=== PATIENT | female | born 1935 | race Caucasian/White ===

== ENCOUNTER 2017-08-21 19:23 | Observation (INO) | payer MEDICARE, OTHER ==
[~2017-08-21] VITALS: Ht 144.8 cm; Wt 87.1 kg
[~2017-08-21 19:23] MED LIST: ALBU90OI INH; ALBU90OI6 INH; AMLO5 PO; AMOCLA875 PO; ATOR10 PO; Acid Controller20 MG; Antivert25 MG PO; BENA20 PO; CEPH500 PO; CHOL10002; Colace100 MG PO; EFFIENT10 MG PO; ELIQUIS2.5 MG; ELIQUIS2.5 MG PO; ENOX120I SQ; FAMO20 PO; FERR325 PO; FURO20 PO; FURO40 PO; HYDACE10B PO; HYDACE5 PO; Humalog100 UNIT/3 SC; INSLI100I SC; INSULANI SC; INSULANPEN; INSULANPEN SC; INSULIN HUMALOG; LEVFLO500 PO; LOSA25 PO; LOSA50 PO; METO25 PO; METO25ER PO; METPRE4DP PO; MINITRAN TOP; Milk Of Ma800 MG/5 M PO; NITR.4SL; OMEP20ER PO; PANT20 PO; POTA10T PO; PRED20 PO; RANO500T PO; SPIR25 PO; VALD20 PO; Vitamin D2000 UNIT PO; WARF5 PO; XARELTO20 MG PO; [UNRECOGNIZED DRUG - OTHER]; [UNRECOGNIZED DRUG - REMARK]; [UNRECOGNIZED DRUG - REMARK]
[2017-08-21 20:05] LABS: BASOPHILS ABSOLUTE AUTO 0.07 K/mm3 (0.00-0.23); BASOPHILS PERCENT AUTO 1 % (0-2); EOSINOPHILS ABSOLUTE AUTO 0.29 K/mm3 (0.00-0.68); EOSINOPHILS PERCENT AUTO 3 % (0-6); Hematocrit 36.2 % (33.0-51.0); IMMATURE GRAN ABSOLUTE AUTO 0.08 K/mm3 (0.00-0.10); IMMATURE GRAN PERCENT AUTO 1 % (0-1); LYMPHOCYTES PERCENT AUTO 23 % (21-46); MONOCYTES ABSOLUTE AUTO 1.09 K/mm3 (0.16-1.47); MONOCYTES PERCENT AUTO 9 % (4-13); Mean Corpuscular HGB 32.5 pg (26.0-34.0); Mean Corpuscular HGB Conc 33.1 g/dL (31.5-36.5); Mean Corpuscular Volume 98 fL (80-100); Mean Platelet Volume 10.4 fL (9.1-12.4); NEUTROPHILS ABSOLUTE AUTO 7.43 K/mm3 (1.96-9.15); NEUTROPHILS PERCENT AUTO 64 % (41-73); Platelet Count 216 K/mm3 (150-400); RDW Coefficient Variation 13.4 % (11.7-14.2); RDW Standard Deviation 48.6 fL (35.1-46.3); Red Blood Cell Count 3.69 M/mm3 (3.80-5.20); White Blood Cell Count 11.56 K/mm3 (4.00-11.30)
[2017-08-21 20:23] LABS: Alanine Aminotransfer (ALT/SGP 23 U/L (12-78); Albumin, Blood 3.4 g/dL (3.4-5.0); Albumin/Globulin Ratio 0.8 (0.8-1.8); Alk Phos 59 U/L (50-136); Anion Gap 11 mmol/L (6-16); Aspartate Aminotrans (AST/SGOT 22 U/L (12-37); Bilirubin, Total 0.4 mg/dL (0.1-1.0); Blood Urea Nitrogen 51 mg/dL (8-24); Bun/Creatinine Ratio 33.3 (12.0-20.0); CO2, Blood 27 mmol/L (21-32); Calcium, Blood 8.9 mg/dL (8.5-10.1); Chloride, Blood 100 mmol/L (98-108); Creatinine, Blood 1.53 mg/dL (0.40-1.00); Glomerular Filtration Rate 35 (60-); Glucose, Blood 119 mg/dL (70-99); Sodium, Blood 138 mmol/L (136-145); Total Protein, Blood 7.4 g/dL (6.4-8.2); Troponin I <0.015 ng/mL (0.000-0.040)
[2017-08-21 21:32] LABS: Influenza A Negative (NEGATIVE); Influenza B Negative (NEGATIVE)
[2017-08-21 22:54] LABS: Source, Urine Clean Catch
[2017-08-21 22:56] LABS: Bilirubin, Urine Neg (Neg); Blood, Urine Neg (Neg); Glucose Qualitative, Urine Neg (Neg); Ketones, Urine Neg (Neg); Leukocyte Esterase, Urine Neg (Neg); Nitrite, Urine Neg (Neg); Protein, Urine Neg (Neg); Urobilinogen, Urine NORM (Normal)
[2017-08-21 23:20] LABS: Appearance, Urine Clear (Clear); Color, Urine Pale Yellow (P-Yellow)
[2017-08-22 07:49] LABS: International Normalized Ratio 1.05; Prothrombin Time Results 10.9 Sec (9.7-11.5)
[2017-08-22 08:00] LABS: CHOL/HDL RATIO 1.5; Cholesterol 98 mg/dL (50-200); HDL Cholesterol 65 mg/dL (>39); LDL/HDL RATIO 0.4; Low Density Lipoprotein Chol 25 mg/dL (0-110); Triglycerides 41 mg/dL (30-160); Very Low Density Lipoprot Chol 8 mg/dL (6-32)
== END 2017-08-22 15:26 | disposition home or self-care (01) ==
LOC: ER 19:23 → MEDS 19:24 → ER 22:21 → MEDS 22:30 → ENPENDDIS 08-22 13:45 → MEDS 08-22 15:26
PROVIDERS: Emergency Medicine; Family Medicine
DX: G45.9 Transient cerebral ischemic attack, unspecified (principal); I16.0 Hypertensive urgency; E11.319 Type 2 diabetes mellitus with unspecified diabetic retinopathy without macular edema; E11.22 Type 2 diabetes mellitus with diabetic chronic kidney disease; I13.0 Hypertensive heart and chronic kidney disease with heart failure and stage 1 through stage 4 chronic kidney disease, or unspecified chronic kidney disease; N18.3 Chronic kidney disease, stage 3 (moderate); I50.30 Unspecified diastolic (congestive) heart failure; I25.10 Atherosclerotic heart disease of native coronary artery without angina pectoris; G47.33 Obstructive sleep apnea (adult) (pediatric); M19.90 Unspecified osteoarthritis, unspecified site; J45.909 Unspecified asthma, uncomplicated; I25.2 Old myocardial infarction; Z95.5 Presence of coronary angioplasty implant and graft; Z95.1 Presence of aortocoronary bypass graft; Z86.718 Personal history of other venous thrombosis and embolism; Z85.038 Personal history of other malignant neoplasm of large intestine; Z90.710 Acquired absence of both cervix and uterus; Z90.49 Acquired absence of other specified parts of digestive tract; Z79.52 Long term (current) use of systemic steroids; Z79.4 Long term (current) use of insulin; Z79.899 Other long term (current) drug therapy
CPT/HCPCS: 36415; 70450; 71046; 80053; 80061; 81003; 82947; 83036; 84484; 85025; 85610; 85730; 87804; 93005; 93010; 94660; 94762; 96361; 96374; 99285; C9113; G0378; J1815; J2405; J7030

== ENCOUNTER → 2017-10-27 | Outpatient (CLI) | payer MEDICARE, OTHER | END | disposition home or self-care (01) | LOC: PLD 07:42 → LAB SHORT 07:42 | DX: D48.5 Neoplasm of uncertain behavior of skin (principal) | CPT/HCPCS: 88305 ==

== ENCOUNTER → 2017-12-16 | Outpatient (CLI) | payer MEDICARE, OTHER ==
[2017-12-16 14:27] LABS: Source, Urine Clean Catch
[2017-12-16 15:05] LABS: Bilirubin, Urine Neg (Neg); Blood, Urine Neg (Neg); Glucose Qualitative, Urine Neg (Neg); Ketones, Urine Neg (Neg); Leukocyte Esterase, Urine 1+ (Neg); Nitrite, Urine Neg (Neg); Protein, Urine Neg (Neg); Specific Gravity, Urine 1.005 (1.003-1.022); Urobilinogen, Urine NORM (Normal)
[2017-12-16 15:23] LABS: Appearance, Urine Clear (Clear); Color, Urine Yellow (P-Yellow)
[2017-12-16 15:25] LABS: Bacteria Many /hpf; Red Blood Cells, Urine Not Seen /hpf (0-2); Squamous Epithelial Cells Few /hpf (Few)
== END | disposition home or self-care (01) ==
LOC: LAB 13:00 → LAB SHORT 13:00
PROVIDERS: Internal Medicine
DX: N39.0 Urinary tract infection, site not specified (principal)
CPT/HCPCS: 81001; 87077; 87086; 87186

== ENCOUNTER → 2018-04-13 | Outpatient (CLI) | payer MEDICARE, OTHER ==
[2018-04-13 12:03] LABS: Source, Urine Clean Catch
[2018-04-13 12:49] LABS: Bilirubin, Urine Neg (Neg); Blood, Urine Neg (Neg); Glucose Qualitative, Urine Neg (Neg); Ketones, Urine Neg (Neg); Leukocyte Esterase, Urine 2+ (Neg); Nitrite, Urine Neg (Neg); Protein, Urine Neg (Neg); Specific Gravity, Urine 1.005 (1.003-1.022); Urobilinogen, Urine NORM (Normal)
[2018-04-13 13:08] LABS: Appearance, Urine Hazy (Clear); Color, Urine Yellow (P-Yellow)
[2018-04-13 13:09] LABS: Squamous Epithelial Cells Mod /hpf (Few)
[2018-04-13 13:10] LABS: Bacteria Mod /hpf; Red Blood Cells, Urine Not Seen /hpf (0-2)
== END | disposition home or self-care (01) ==
LOC: EDSTATUS 08:51 → LAB 12:01 → LAB SHORT 12:01
PROVIDERS: Internal Medicine
DX: N39.0 Urinary tract infection, site not specified (principal)
CPT/HCPCS: 81001

== ENCOUNTER 2019-03-01 14:01 | Inpatient (IN) | payer MEDICARE, OTHER ==
[~2019-03-01] VITALS: Ht 124.5 cm; Wt 83.9 kg
[~2019-03-01 14:01] MED LIST changes: -CHOL10002; -ELIQUIS2.5 MG PO; -Humalog100 UNIT/3 SC; -LOSA25 PO; -METO25 PO; -Milk Of Ma800 MG/5 M PO; -NITR.4SL; -PANT20 PO; -RANO500T PO; -SPIR25 PO
[2019-03-01 14:50] LABS: BASOPHILS ABSOLUTE AUTO 0.05 K/mm3 (0.00-0.23); BASOPHILS PERCENT AUTO 0 % (0-2); EOSINOPHILS ABSOLUTE AUTO 0.01 K/mm3 (0.00-0.68); EOSINOPHILS PERCENT AUTO 0 % (0-6); Hematocrit 34.2 % (33.0-51.0); Hemoglobin 11.5 g/dL (11.5-16.0); IMMATURE GRAN ABSOLUTE AUTO 0.16 K/mm3 (0.00-0.10); IMMATURE GRAN PERCENT AUTO 1 % (0-1); LYMPHOCYTES ABSOLUTE AUTO 1.46 K/mm3 (0.84-5.20); LYMPHOCYTES PERCENT AUTO 7 % (21-46); MONOCYTES ABSOLUTE AUTO 2.41 K/mm3 (0.16-1.47); MONOCYTES PERCENT AUTO 12 % (4-13); Mean Corpuscular HGB 31.8 pg (26.0-34.0); Mean Corpuscular HGB Conc 33.6 g/dL (31.5-36.5); Mean Corpuscular Volume 95 fL (80-100); Mean Platelet Volume 10.4 fL (9.1-12.4); NEUTROPHILS ABSOLUTE AUTO 16.89 K/mm3 (1.96-9.15); NEUTROPHILS PERCENT AUTO 81 % (41-73); Platelet Count 202 K/mm3 (150-400); RDW Coefficient Variation 13.4 % (11.7-14.2); RDW Standard Deviation 46.6 fL (35.1-46.3); Red Blood Cell Count 3.62 M/mm3 (3.80-5.20); White Blood Cell Count 20.98 K/mm3 (4.00-11.30)
[2019-03-01 15:07] LABS: Albumin, Blood 2.9 g/dL (3.4-5.0); Albumin/Globulin Ratio 0.6 (0.8-1.8); Bilirubin, Total 0.6 mg/dL (0.1-1.0); Bun/Creatinine Ratio 40.1 (12.0-20.0); Calcium, Blood 8.8 mg/dL (8.5-10.1); Creatinine, Blood 1.62 mg/dL (0.40-1.00); Globulin, Blood 4.6 g/dL (2.2-4.0); Potassium, Blood 3.9 mmol/L (3.5-5.5); Total Protein, Blood 7.5 g/dL (6.4-8.2)
[2019-03-01] MEDS ORDERED: ATOR10 PO (16:37)
[2019-03-01] MEDS ORDERED: METO25 PO (16:38)
[2019-03-01] MEDS ORDERED: LOSA25 PO (16:38)
[2019-03-01] MEDS ORDERED: SPIR25 PO (16:38)
[2019-03-01] MEDS ORDERED: RANO500T PO (16:39)
[2019-03-01] MEDS ORDERED: ELIQUIS2.5 MG PO (16:39)
[2019-03-01] MEDS ORDERED: CHOL10002 PO (16:39)
[2019-03-01] MEDS ORDERED: TORS10 PO (16:40)
[2019-03-01] MEDS ORDERED: CLOP75 PO (16:40)
[2019-03-01] MEDS ORDERED: PANT20 PO (16:41)
[2019-03-01] MEDS ORDERED: Nitro-Dur1 EACH TD (16:42)
[2019-03-01] MEDS ORDERED: INSULANPEN SC (16:45)
[2019-03-01] MEDS ORDERED: Humalog100 UNIT/3 SC (16:46)
[2019-03-01] MEDS ORDERED: Milk Of Ma400 MG/5 M PO (16:47)
[2019-03-01] MEDS ORDERED: Ventolin/Prove6.7 GM INH (16:48)
[2019-03-01] MEDS ORDERED: BISA10S PR (16:48)
[2019-03-01] MEDS ORDERED: Artificial Tear15 M4 BOTHEYES (16:49)
[2019-03-01] MEDS ORDERED: Eq Liquid Anta769 ML PO (16:50)
[2019-03-01] MEDS ORDERED: NITR.4SL SL (16:51)
[2019-03-01] MEDS ORDERED: BISM87SU PO (16:52)
[2019-03-02 05:17] LABS: BASOPHILS ABSOLUTE AUTO 0.05 K/mm3 (0.00-0.23); BASOPHILS PERCENT AUTO 0 % (0-2); EOSINOPHILS PERCENT AUTO 0 % (0-6); Hematocrit 36.5 % (33.0-51.0); Hemoglobin 12.1 g/dL (11.5-16.0); IMMATURE GRAN ABSOLUTE AUTO 0.29 K/mm3 (0.00-0.10); IMMATURE GRAN PERCENT AUTO 1 % (0-1); LYMPHOCYTES ABSOLUTE AUTO 1.38 K/mm3 (0.84-5.20); LYMPHOCYTES PERCENT AUTO 6 % (21-46); MONOCYTES ABSOLUTE AUTO 0.76 K/mm3 (0.16-1.47); MONOCYTES PERCENT AUTO 4 % (4-13); Mean Corpuscular HGB 32.1 pg (26.0-34.0); Mean Corpuscular HGB Conc 33.2 g/dL (31.5-36.5); Mean Corpuscular Volume 97 fL (80-100); Mean Platelet Volume 10.6 fL (9.1-12.4); NEUTROPHILS ABSOLUTE AUTO 19.01 K/mm3 (1.96-9.15); NEUTROPHILS PERCENT AUTO 89 % (41-73); Platelet Count 198 K/mm3 (150-400); RDW Coefficient Variation 13.5 % (11.7-14.2); RDW Standard Deviation 48.6 fL (35.1-46.3); Red Blood Cell Count 3.77 M/mm3 (3.80-5.20); White Blood Cell Count 21.49 K/mm3 (4.00-11.30)
[2019-03-02 05:45] LABS: Alanine Aminotransfer (ALT/SGP 13 U/L (12-78); Albumin, Blood 2.8 g/dL (3.4-5.0); Albumin/Globulin Ratio 0.6 (0.8-1.8); Alk Phos 63 U/L (50-136); Anion Gap 11 mmol/L (6-16); Aspartate Aminotrans (AST/SGOT 22 U/L (12-37); Bilirubin, Total 0.5 mg/dL (0.1-1.0); Blood Urea Nitrogen 72 mg/dL (8-24); Bun/Creatinine Ratio 40.7 (12.0-20.0); CO2, Blood 23 mmol/L (21-32); Calcium, Blood 9.1 mg/dL (8.5-10.1); Chloride, Blood 101 mmol/L (98-108); Creatinine, Blood 1.77 mg/dL (0.40-1.00); Globulin, Blood 4.6 g/dL (2.2-4.0); Glomerular Filtration Rate 29 (60-); Glucose, Blood 225 mg/dL (70-99); Potassium, Blood 4.2 mmol/L (3.5-5.5); Sodium, Blood 135 mmol/L (136-145); Total Protein, Blood 7.4 g/dL (6.4-8.2)
[2019-03-02 05:46] LABS: C-REACTIVE PROTEIN, EXT RANGE >19.000 mg/dL (0.000-0.300)
--- NOTE | 2019-03-02 05:49 | NUR ---
SHIFT SUMMARY 83/F ADMITTED FOR CAP COMES FROM [facility] C/O SOB AND PERSISTENT COUGH. PT IS INDEPENDENT IN WITH STEADY GAIT. LS DIM T/O. CONT PULSE OX IN PLACE, O2 SATS HAVE BEEN >93%. PT IS ON 2L VIA NC DURING DAY, CPAP @ NIGHT. BASELINE IS CPAP @ NIGHT, RA DURING DAY. ROCEPHIN AND AZITHROMYCIN ORDERED DAILY. CBG 231 LAST NIGHT, ADMINISTERED HUMALOG AND LANTUS PER ORDERS. 2+ EDEMA TO BLE, NOT BASELINE. TELE IN PLACE, NSR c BBB @ 70's BPM PER PRODUCTION PLANNER. PT RESTING IN BED AT THIS TIME, CALL LT IN REACH. WILL CONT TO MONITOR AND PROVIDE CARE UNTIL PRESUMED BY ONCOMING RN.
[2019-03-02] MEDS ORDERED: Florastor250 MG PO (12:53)
[2019-03-02] MEDS ORDERED: AZIT250 PO (12:55)
[2019-03-02] MEDS ORDERED: CEFP200 PO (12:56)
[2019-03-02] MEDS ORDERED: Prednisone10 MG PO (12:59)
--- NOTE | 2019-03-02 14:29 | NUR ---
435 BLOOD SUGAR-LATE ENTRY PT HAD BLOOD SUGAR OF [address] DOS SANTOS CALLED & INFORMED. NO NEW ORDERS GIVEN. 32 UNITS GIVEN PER ORIGINAL ORDER. DR. PISANO STATED HE WOULD REVIEW CHART. WILL CONINTUE TO MONITOR.
--- NOTE | 2019-03-02 14:35 | NUR ---
DR. DOS SANTOS AWARE OF BLOOD SUGAR OF 273.
--- NOTE | 2019-03-02 15:07 | NUR ---
PT DISCHARGED. PT DISCHARGED AT 1500. PT IN STABLE CONDITION WITH VSS. AWARE OF ELEVATED BLOOD SUGAR. PT REQUIRING 2L O2 WITH EXERTION. NOLAN EDUCATED PT ON PORTABLE O2 TANK. PT EDUCATED ON DC INSTRUCTIONS. DENIED FURTHER NEED FOR INSTRUCTION. PT WHEELED OUT BY AIDE & PICKED UP BY FAMILY.
== END 2019-03-02 15:00 | disposition home or self-care (01) | DRG 194 ==
LOC: ER 14:01 → MEDS 16:40
PROVIDERS: Emergency Medicine; ADMIT Hospitalist
DX: J18.1 Lobar pneumonia, unspecified organism (principal); I50.32 Chronic diastolic (congestive) heart failure; N18.4 Chronic kidney disease, stage 4 (severe); I13.0 Hypertensive heart and chronic kidney disease with heart failure and stage 1 through stage 4 chronic kidney disease, or unspecified chronic kidney disease; I25.10 Atherosclerotic heart disease of native coronary artery without angina pectoris; G47.33 Obstructive sleep apnea (adult) (pediatric); E11.22 Type 2 diabetes mellitus with diabetic chronic kidney disease; E78.5 Hyperlipidemia, unspecified; E11.319 Type 2 diabetes mellitus with unspecified diabetic retinopathy without macular edema; K21.9 Gastro-esophageal reflux disease without esophagitis; M81.0 Age-related osteoporosis without current pathological fracture; Z79.02 Long term (current) use of antithrombotics/antiplatelets; Z79.4 Long term (current) use of insulin; Z79.899 Other long term (current) drug therapy; Z95.1 Presence of aortocoronary bypass graft; Z86.718 Personal history of other venous thrombosis and embolism; Z85.038 Personal history of other malignant neoplasm of large intestine; Z92.21 Personal history of antineoplastic chemotherapy
CPT/HCPCS: 36415; 71046; 80053; 82947; 83605; 83880; 84145; 85025; 86140; 87040; 92610; 94640; 94660; 94667; 94761; 94762; 96365; 97161; 97165; 97530; 99285-25; C9113; J0456; J0696; J2920; J7050

== ENCOUNTER → 2021-02-25 | Outpatient (CLI) | payer MEDICARE, OTHER ==
[~2021-02-25] MED LIST changes: +AZIT250 PO; +Artificial Tear15 M4 BOTHEYES; +BISA10S PR; +BISM87SU PO; +CEFP200 PO; +CHOL10002 PO; +CLOP75 PO; +ELIQUIS2.5 MG PO; +Eq Liquid Anta769 ML PO; +Florastor250 MG PO; +Humalog100 UNIT/3 SC; +LOSA25 PO; +METO25 PO; +Milk Of Ma400 MG/5 M PO; +NITR.4SL SL; +Nitro-Dur1 EACH TD; +PANT20 PO; +Prednisone10 MG PO; +RANO500T PO; +SPIR25 PO; +TORS10 PO; +Ventolin/Prove6.7 GM INH
== END ==
LOC: LAB SHORT 11:00 → LAB 11:00
DX: R30.9 Painful micturition, unspecified (principal)
CPT/HCPCS: 87086

== ENCOUNTER 2021-11-01 00:12 | Day surgery (SDC) | payer MEDICARE, OTHER | END 2021-11-01 10:30 | disposition home or self-care (01) | LOC: ATC 00:12 | DX: R19.7 Diarrhea, unspecified (principal); I13.0 Hypertensive heart and chronic kidney disease with heart failure and stage 1 through stage 4 chronic kidney disease, or unspecified chronic kidney disease; N18.4 Chronic kidney disease, stage 4 (severe); D63.1 Anemia in chronic kidney disease; I50.32 Chronic diastolic (congestive) heart failure; E11.22 Type 2 diabetes mellitus with diabetic chronic kidney disease; I25.10 Atherosclerotic heart disease of native coronary artery without angina pectoris; E11.319 Type 2 diabetes mellitus with unspecified diabetic retinopathy without macular edema; Z79.4 Long term (current) use of insulin | CPT/HCPCS: J2916 ==

== ENCOUNTER 2021-11-04 01:33 | Day surgery (SDC) | payer MEDICARE, OTHER | END 2021-11-04 12:57 | disposition home or self-care (01) | LOC: ATC 01:33 | DX: R19.7 Diarrhea, unspecified (principal); I13.0 Hypertensive heart and chronic kidney disease with heart failure and stage 1 through stage 4 chronic kidney disease, or unspecified chronic kidney disease; N18.4 Chronic kidney disease, stage 4 (severe); I50.32 Chronic diastolic (congestive) heart failure; D63.1 Anemia in chronic kidney disease; I25.10 Atherosclerotic heart disease of native coronary artery without angina pectoris; E11.22 Type 2 diabetes mellitus with diabetic chronic kidney disease; I25.2 Old myocardial infarction; Z96.642 Presence of left artificial hip joint; Z96.651 Presence of right artificial knee joint | CPT/HCPCS: J2916 ==

== ENCOUNTER 2021-11-14 09:38 | Emergency (ER) | payer MEDICARE, OTHER ==
[~2021-11-14] VITALS: Ht 144.8 cm; Wt 82.5 kg
[2021-11-14 10:52] LABS: Influenza B, PCR NEGATIVE (NEGATIVE); Resp Syncytial Virus, PCR NEGATIVE (NEGATIVE); SARS-Cov-2 (COVID-19) PCR, MMC NEGATIVE (NEGATIVE)
[2021-11-14 10:59] LABS: BASOPHILS ABSOLUTE AUTO 0.03 K/mm3 (0.00-0.23); BASOPHILS PERCENT AUTO 0 % (0-2); EOSINOPHILS ABSOLUTE AUTO 0.03 K/mm3 (0.00-0.68); EOSINOPHILS PERCENT AUTO 0 % (0-6); Hematocrit 31.9 % (33.0-51.0); IMMATURE GRAN ABSOLUTE AUTO 0.07 K/mm3 (0.00-0.10); IMMATURE GRAN PERCENT AUTO 1 % (0-1); LYMPHOCYTES PERCENT AUTO 27 % (21-46); MONOCYTES ABSOLUTE AUTO 1.12 K/mm3 (0.16-1.47); MONOCYTES PERCENT AUTO 12 % (4-13); Mean Corpuscular HGB 28.7 pg (26.0-34.0); Mean Corpuscular HGB Conc 31.3 g/dL (31.5-36.5); Mean Corpuscular Volume 92 fL (80-100); Mean Platelet Volume 10.1 fL (9.1-12.4); NEUTROPHILS PERCENT AUTO 60 % (41-73); Platelet Count 260 K/mm3 (150-400); RDW Coefficient Variation 15.2 % (11.7-14.2); RDW Standard Deviation 49.5 fL (35.1-46.3); Red Blood Cell Count 3.48 M/mm3 (3.80-5.20); White Blood Cell Count 9.35 K/mm3 (4.00-11.30)
[2021-11-14 11:09] LABS: Influenza A, PCR POSITIVE (NEGATIVE)
[2021-11-14 11:21] LABS: Albumin/Globulin Ratio 0.7 (0.8-1.8); Bilirubin, Direct 0.1 mg/dL (0.0-0.3); Bilirubin, Indirect 0.3 mg/dL (0.1-0.7); Bilirubin, Total 0.4 mg/dL (0.1-1.0); Bun/Creatinine Ratio 35.4 (12.0-20.0); Calcium, Blood 8.7 mg/dL (8.5-10.1); Creatinine, Blood 1.75 mg/dL (0.40-1.00); Globulin, Blood 4.3 g/dL (2.2-4.0); Total Protein, Blood 7.3 g/dL (6.4-8.2)
[2021-11-14] MEDS ORDERED: PRED20 PO (12:13)
[2021-11-14] MEDS ORDERED: BENZ100A PO (12:13)
== END 2021-11-14 12:42 | disposition home or self-care (01) ==
LOC: ER 09:38
PROVIDERS: Emergency Medicine
DX: J10.1 Influenza due to other identified influenza virus with other respiratory manifestations (principal); J44.1 Chronic obstructive pulmonary disease with (acute) exacerbation; I13.0 Hypertensive heart and chronic kidney disease with heart failure and stage 1 through stage 4 chronic kidney disease, or unspecified chronic kidney disease; E11.22 Type 2 diabetes mellitus with diabetic chronic kidney disease; N18.4 Chronic kidney disease, stage 4 (severe); I50.30 Unspecified diastolic (congestive) heart failure; I25.10 Atherosclerotic heart disease of native coronary artery without angina pectoris; E11.319 Type 2 diabetes mellitus with unspecified diabetic retinopathy without macular edema; I25.2 Old myocardial infarction; Z79.4 Long term (current) use of insulin; Z99.81 Dependence on supplemental oxygen; Z79.899 Other long term (current) drug therapy
CPT/HCPCS: 0241U; 36415; 71045; 80053; 82248; 83605; 84145; 85025; 94644; 94664; J0456; J0696; J1100; J7030; J7060

== ENCOUNTER 2021-11-29 01:03 | Day surgery (SDC) | payer MEDICARE, OTHER ==
[~2021-11-29 01:03] MED LIST changes: +BENZ100A PO
== END 2021-11-29 11:52 | disposition home or self-care (01) ==
LOC: ATC 01:03
DX: R19.7 Diarrhea, unspecified (principal); D63.1 Anemia in chronic kidney disease
CPT/HCPCS: 96365; J2916

== ENCOUNTER → 2021-12-17 | Outpatient (CLI) | payer MEDICARE, OTHER | END | disposition home or self-care (01) | LOC: LAB SHORT 14:52 | DX: C44.319 Basal cell carcinoma of skin of other parts of face (principal) | CPT/HCPCS: 88305 ==

== ENCOUNTER 2022-02-28 09:23 | Inpatient (IN) | payer MEDICARE, OTHER ==
[~2022-02-28] VITALS: Ht 144.8 cm; Wt 83.2 kg
[~2022-02-28 09:23] MED LIST changes: +MECL25 PO; +ONDA4ODT MM
[2022-02-28 10:43] LABS: BASOPHILS ABSOLUTE AUTO 0.04 K/mm3 (0.00-0.23); BASOPHILS PERCENT AUTO 0 % (0-2); EOSINOPHILS ABSOLUTE AUTO 0.15 K/mm3 (0.00-0.68); EOSINOPHILS PERCENT AUTO 2 % (0-6); Hematocrit 33.3 % (33.0-51.0); Hemoglobin 10.8 g/dL (11.5-16.0); IMMATURE GRAN ABSOLUTE AUTO 0.04 K/mm3 (0.00-0.10); IMMATURE GRAN PERCENT AUTO 0 % (0-1); LYMPHOCYTES ABSOLUTE AUTO 2.63 K/mm3 (0.84-5.20); LYMPHOCYTES PERCENT AUTO 29 % (21-46); MONOCYTES ABSOLUTE AUTO 1.17 K/mm3 (0.16-1.47); MONOCYTES PERCENT AUTO 13 % (4-13); Mean Corpuscular HGB 29.3 pg (26.0-34.0); Mean Corpuscular HGB Conc 32.4 g/dL (31.5-36.5); Mean Corpuscular Volume 91 fL (80-100); Mean Platelet Volume 10.6 fL (9.1-12.4); NEUTROPHILS ABSOLUTE AUTO 5.06 K/mm3 (1.96-9.15); NEUTROPHILS PERCENT AUTO 56 % (41-73); Platelet Count 281 K/mm3 (150-400); RDW Coefficient Variation 14.4 % (11.7-14.2); RDW Standard Deviation 47.7 fL (35.1-46.3); Red Blood Cell Count 3.68 M/mm3 (3.80-5.20); White Blood Cell Count 9.09 K/mm3 (4.00-11.30)
[2022-02-28 11:11] LABS: Albumin, Blood 3.1 g/dL (3.4-5.0); Albumin/Globulin Ratio 0.7 (0.8-1.8); Bilirubin, Total 0.5 mg/dL (0.1-1.0); Bun/Creatinine Ratio 40.8 (12.0-20.0); C-REACTIVE PROTEIN, EXT RANGE 0.678 mg/dL (0.000-0.300); Calcium, Blood 9.3 mg/dL (8.5-10.1); Creatinine, Blood 1.57 mg/dL (0.40-1.00); Globulin, Blood 4.3 g/dL (2.2-4.0); Magnesium, Blood 2.3 mg/dL (1.6-2.4); Phosphorus, Blood 3.6 mg/dL (2.5-4.9); Total Protein, Blood 7.4 g/dL (6.4-8.2)
--- NOTE | 2022-02-28 11:24 | NUR ---
LATE ENTRY/DIRECT ADMIT 0950: RECEIVED PT FROM REGISTRATION VIA W/C. PLACED IN ROOM, MADE COMFORTABLE, ORIENTED TO ROOM & UNIT ROUTINE. MADE CALL LIGHT ACCESSIBLE. PIV STARTED IN HER L HAND WITH A 22G X 1 ATTEMPT. PLACED CALL TO MD TO NOTIFY OF PT'S ARRIVAL TO FLOOR & TO OBTAIN ORDERS. PT A&O X 4. VSS ON ADMIT. PT ABLE TO INDEPENDENTLY AMBULATE TO RESTROOM. ENCOURAGED TO CALL FOR HELP IF SHE NEEDS IT. IS PLEASANT & COOPERATIVE WITH ALL CARE. R HAND IS SWOLLEN, RED & WARM TO TOUCH. SHE STATES IT DOES HURT. ORDERED A CT SCAN W/OUT CONTRAST (HAS RENAL DYSFXN). 1115: PT TO CT SCAN VIA W/C.
--- NOTE | 2022-02-28 11:30 | NUR ---
PHYSICAL ASSESSMENT PT'S LUNGS ARE DIMINISHED BILAT BASES OTHERWISE CLEAR, HEART SOUNDS ARE REGULAR THOUGH HAS A QUIET MURMUR, ABD SOUNDS ARE NORMAL. NO SWELLING IN ALL UN-EFFECTED EXTREMITIES. MENTATION IS CLEAR AND SHE ANSWERS ALL QUESTIONS APPROPRIATELY. NO NOTED SKIN ISSUES.
--- NOTE | 2022-02-28 18:03 | NUR ---
SHIFT SUMMARY A&O X 4. VSS. INDEPENDENT IN THE ROOM. WILL BE NPO AFTER MN FOR SURGERY ON R HAND TOMORROW MORNING WITH DR. CARDENAS. IS PLEASANT & COOPERATIVE WITH ALL CARE.
--- NOTE | 2022-02-28 20:49 | NUR ---
NURSE NOTE: LISA KING NOTIFIED PT DOES NOT HAVE CODE STATUS ORDERED. PT IS ALERT AND ORIENTED X4 INFORMED THIS RN THAT SHE DOES NOT WANT ANY RESUSITATION WHAT SO EVER. GAVE TELEPHONE ORDER TO PLACE DNR RESUSITATION ORDER.
[2022-03-01 03:37] LABS: Influenza A, PCR NEGATIVE (NEGATIVE); Influenza B, PCR NEGATIVE (NEGATIVE); Resp Syncytial Virus, PCR NEGATIVE (NEGATIVE)
[2022-03-01 03:41] LABS: SARS-Cov-2 (COVID-19) PCR, MMC POSITIVE (NEGATIVE)
--- NOTE | 2022-03-01 04:27 | NUR ---
SHIFT SUMMARY: A/OX4, ADLIB IN ROOM. NO COMPLAINTS OF PAIN THROUGHOUT THE NIGHT. PT WAS TESTED FOR COVID DUE TO PENDING SURGICAL PROCEDURE- COVID TEST RESULTING IN (+). RISHABH KING NOTIFIED- ENHANCED ISOLATION PRECAUTIONS ORDERED. PT HAS REMAINED NPO AFTER MIDNIGHT. CPAP IN USE WITH 2L O2 WHEN SLEEPING. BED IN LOW POSITION, CALL LAMA AND BELONGINGS IN REACH. PT CONTINUES TO CALL APPROPRIATELY.
[2022-03-01 05:54] LABS: Creatinine, Blood 1.57 mg/dL (0.40-1.00); Vancomycin, Random 15.1 ug/mL
--- NOTE | 2022-03-01 15:16 | NUR ---
03/01/22 1516 Gwen Tompkins PATIENT ON SCHEDULED ANTIBIOTICS
--- NOTE | 2022-03-01 16:51 | NUR ---
SHIFT SUMMARY;PATIENT WENT TO SURGERY TODAY FOR A DEBRIDEMENT OF HER LEFT HAND. DONE BY . RETURNED FROM SURGERY APPROX 1600. HER LEFT HAND IS WRAPPED IN GAUZE AND KEENA WRAP. NO DRAINAGE NOTED FROM SITE. PATIENT SAYS MINIMAL PAIN. REFUSES PAIN MEDICATIONS AT THIS TIME. HER VITAL SIGNS SHOW SYSTOLIC IN THE 140'S AND DYSTOLIC IN THE 40 TO 50 RANGE. WILL CONTINUE TO MONITOR THIS PATIENT
--- NOTE | 2022-03-02 04:15 | NUR ---
SHIFT SUMMARY: A/OX4, ADLIB IN ROOM WITH AMBULATION AND REPOSITIONING. NO COMPLAINTS OF PAIN THROUGHOUT THE NIGHT. RIGHT HAND POST PROCEDURE DRESSING IN PLACE, NO DRAINAGE NOTED, CAPILLARY REFIL <3 SECONDS. 2L O2 NASAL CANNULA APPLIED DUE TO SLIGHT DESATURATION DOWN TO 88% PT REPORTS USING PRN OXYGEN 2L AT HOME. OTHERWISE CPAP WITH 2L O2 USED WHEN SLEEPING. BED IN LOW POSITION, CALL LAMA AND BELONGINGS IN REACH. PT CONTINUES TO CALL APPROPRIATELY.
[2022-03-02 05:04] LABS: BASOPHILS ABSOLUTE AUTO 0.01 K/mm3 (0.00-0.23); BASOPHILS PERCENT AUTO 0 % (0-2); EOSINOPHILS PERCENT AUTO 0 % (0-6); Hematocrit 30.5 % (33.0-51.0); Hemoglobin 9.9 g/dL (11.5-16.0); IMMATURE GRAN ABSOLUTE AUTO 0.03 K/mm3 (0.00-0.10); IMMATURE GRAN PERCENT AUTO 1 % (0-1); LYMPHOCYTES ABSOLUTE AUTO 1.34 K/mm3 (0.84-5.20); LYMPHOCYTES PERCENT AUTO 21 % (21-46); MONOCYTES PERCENT AUTO 5 % (4-13); Mean Corpuscular HGB 29.4 pg (26.0-34.0); Mean Corpuscular HGB Conc 32.5 g/dL (31.5-36.5); Mean Corpuscular Volume 91 fL (80-100); Mean Platelet Volume 10.9 fL (9.1-12.4); NEUTROPHILS ABSOLUTE AUTO 4.77 K/mm3 (1.96-9.15); NEUTROPHILS PERCENT AUTO 74 % (41-73); Platelet Count 233 K/mm3 (150-400); RDW Coefficient Variation 14.2 % (11.7-14.2); RDW Standard Deviation 46.6 fL (35.1-46.3); Red Blood Cell Count 3.37 M/mm3 (3.80-5.20); White Blood Cell Count 6.45 K/mm3 (4.00-11.30)
[2022-03-02 05:54] LABS: Anion Gap 10 mmol/L (6-16); Blood Urea Nitrogen 60 mg/dL (8-24); CO2, Blood 23 mmol/L (21-32); Chloride, Blood 104 mmol/L (98-108); Creatinine, Blood 1.54 mg/dL (0.40-1.00); Glomerular Filtration Rate 33 (60-); Glucose, Blood 232 mg/dL (70-99); Sodium, Blood 137 mmol/L (136-145); Vancomycin, Random 18.4 ug/mL
--- NOTE | 2022-03-02 15:37 | NUR ---
SHIFT SUMMARY; PATIENT HAS PLEASANT AFFECT. SHE IS COOPERATIVE WITH CARE. USES CALL LIGHT APPROPRIATELY AND IS INDEPENDANT IN ROOM. HER VITAL SIGNS ARE STABLE. HER PULSE IS CONSISTENTLY BRADYCARDIC IN THE 50'S. SHE IS NOT SYMPTOMATIC. MEETS WITH PATIENT AND HE WILL HAVE HER STAY AT LEAST ONE OR TWO MORE DAYS TO RECEIVE ANTIBIOTICS IV. PATIENT SAYS SHE HAS MINIMAL PAIN AND IS ONLY MEDICATED X 1 WITH PAIN MEDICINE THIS AM. HER LUNGS ARE CLEAR TO AUSCULTATION HOWEVER ARE DIMINISHED IN THE BASES.
--- NOTE | 2022-03-03 04:30 | NUR ---
SHIFT SUMMARY: A/OX4, ADLIB IN ROOM. NO COMPLAINTS OF PAIN THROUGHOUT THE NIGHT. NO ACUTE CHANGES THROUGHOUT THE NIGHT. PT CONTINUES TO USE CPAP AT NIGHT WITH 2L O2, SATING ABOVE 90%. RIGHT HAND DRESSING REMAINS CLEAN, DRY AND INTACT. CONTINUES TO CALL APPROPRIATELY, BED IN LOW POSITION, CALL LAMA AND BELONGINGS IN REACH.
[2022-03-03 06:02] LABS: BASOPHILS ABSOLUTE AUTO 0.04 K/mm3 (0.00-0.23); BASOPHILS PERCENT AUTO 0 % (0-2); EOSINOPHILS ABSOLUTE AUTO 0.21 K/mm3 (0.00-0.68); EOSINOPHILS PERCENT AUTO 2 % (0-6); Hematocrit 30.4 % (33.0-51.0); Hemoglobin 9.7 g/dL (11.5-16.0); IMMATURE GRAN ABSOLUTE AUTO 0.04 K/mm3 (0.00-0.10); IMMATURE GRAN PERCENT AUTO 0 % (0-1); LYMPHOCYTES ABSOLUTE AUTO 3.07 K/mm3 (0.84-5.20); LYMPHOCYTES PERCENT AUTO 35 % (21-46); MONOCYTES ABSOLUTE AUTO 1.01 K/mm3 (0.16-1.47); MONOCYTES PERCENT AUTO 11 % (4-13); Mean Corpuscular HGB Conc 31.9 g/dL (31.5-36.5); Mean Corpuscular Volume 91 fL (80-100); NEUTROPHILS ABSOLUTE AUTO 4.52 K/mm3 (1.96-9.15); NEUTROPHILS PERCENT AUTO 51 % (41-73); Platelet Count 203 K/mm3 (150-400); RDW Coefficient Variation 14.3 % (11.7-14.2); RDW Standard Deviation 47.5 fL (35.1-46.3); Red Blood Cell Count 3.34 M/mm3 (3.80-5.20); White Blood Cell Count 8.89 K/mm3 (4.00-11.30)
[2022-03-03 06:06] LABS: Anion Gap 8 mmol/L (6-16); Blood Urea Nitrogen 63 mg/dL (8-24); Bun/Creatinine Ratio 37.1 (12.0-20.0); CO2, Blood 26 mmol/L (21-32); Calcium, Blood 8.6 mg/dL (8.5-10.1); Chloride, Blood 104 mmol/L (98-108); Glomerular Filtration Rate 29 (60-); Glucose, Blood 194 mg/dL (70-99); Potassium, Blood 4.5 mmol/L (3.5-5.5); Sodium, Blood 138 mmol/L (136-145); Vancomycin, Random 18.5 ug/mL
[2022-03-03] MEDS ORDERED: ALLO100 PO (14:54)
[2022-03-03] MEDS ORDERED: COLCHICINE0.6 MG PO (14:55)
--- NOTE | 2022-03-03 15:48 | NUR ---
PT IS A&O, PLEASANT AND CO-OP. UP INDEPENDENTLY IN RM AND TO BTHRM. PT WANTING TO GO HOME. DR CARDENAS HERE FOR DRSG CHANGE AND GAVE PT INSTRUCTIONS FOR D/C. PT TO F/U IN 1 WEEK AND DO DAILY DRY DRSG CHANGES. DR KEYES IN TO SEE PT AND DISCUSS PLAN OF CARE. D/C ORDERS LATER PLACED. PT UP TO SHOWER INDEPENDENTLY AND WAITED IN CHAIR AT FOR D/C INSTRUCTIONS. MEDS FAXED TO [facility] PER PT REQUEST. UPDATED REVISED MED REC RESENT FOR ABX. PT VERBALIZED D/C INSTRUCTIONS. CALLED HER FRIEND FOR [facility] HOME. PT ASSISTED OUT VIA W/C WITH ALL BELONGINGS.
== END 2022-03-03 15:21 | disposition home or self-care (01) | DRG 553 ==
LOC: MEDS 09:23 → ENPENDDIS 03-03 14:04 → MEDS 03-03 15:21
PROVIDERS: Orthopaedic Surgery; ADMIT Hospitalist
PROC: 8E0ZXY6 Isolation (ICD-10-PCS; 2022-03-01)
PROC: 0JBJ0ZX Excision of Right Hand Subcutaneous Tissue and Fascia, Open Approach, Diagnostic (ICD-10-PCS; principal; 2022-03-01 13:15)
DX: M10.041 Idiopathic gout, right hand (principal); U07.1 COVID-19; N18.4 Chronic kidney disease, stage 4 (severe); I50.32 Chronic diastolic (congestive) heart failure; E78.5 Hyperlipidemia, unspecified; E11.22 Type 2 diabetes mellitus with diabetic chronic kidney disease; G47.33 Obstructive sleep apnea (adult) (pediatric); E11.319 Type 2 diabetes mellitus with unspecified diabetic retinopathy without macular edema; E04.9 Nontoxic goiter, unspecified; I25.10 Atherosclerotic heart disease of native coronary artery without angina pectoris; I35.1 Nonrheumatic aortic (valve) insufficiency; I48.0 Paroxysmal atrial fibrillation; Z79.01 Long term (current) use of anticoagulants; Z86.718 Personal history of other venous thrombosis and embolism; K21.9 Gastro-esophageal reflux disease without esophagitis; M81.0 Age-related osteoporosis without current pathological fracture; Z95.1 Presence of aortocoronary bypass graft; Z92.21 Personal history of antineoplastic chemotherapy; D64.9 Anemia, unspecified; Z96.642 Presence of left artificial hip joint; E11.51 Type 2 diabetes mellitus with diabetic peripheral angiopathy without gangrene; Z79.899 Other long term (current) drug therapy; Z79.4 Long term (current) use of insulin; Z88.8 Allergy status to other drugs, medicaments and biological substances
CPT/HCPCS: 0241U; 36415; 73200; 80048; 80053; 80202; 82565; 82947; 83735; 84100; 84550; 85025; 85651; 86140; 87070; 87075; 87205; 94660; 94762; A9270; C9113; J0696; J1100; J1650; J1815; J2250; J2370; J2405; J2704; J2795; J3010; J3370; J7040; J7060

== ENCOUNTER → 2022-07-09 | Outpatient (CLI) | payer MEDICARE, OTHER ==
[~2022-07-09] MED LIST changes: +ALLO100 PO; +COLCHICINE0.6 MG PO
[2022-07-09 11:52] LABS: Source, Urine Clean Catch
[2022-07-09 13:53] LABS: Appearance, Urine Cloudy (Clear); Bilirubin, Urine Neg (Neg); Blood, Urine 5+ (Neg); Color, Urine Yellow (P-Yellow); Glucose Qualitative, Urine Neg (Neg); Ketones, Urine Neg (Neg); Leukocyte Esterase, Urine 3+ (Neg); Nitrite, Urine Neg (Neg); Protein, Urine 2+ (Neg); Specific Gravity, Urine 1.015 (1.003-1.022); Urobilinogen, Urine NORM (Normal)
[2022-07-09 14:27] LABS: Bacteria Many /hpf; Red Blood Cells, Urine TNTC /hpf (0-2); Squamous Epithelial Cells Few /hpf (Few); Transitional Epithelial Cells Few /hpf (0-Rare); White Blood Cells, Urine TNTC /hpf (0-5)
== END | disposition home or self-care (01) ==
LOC: LAB SHORT 08:00
PROVIDERS: Hospitalist
DX: N39.0 Urinary tract infection, site not specified (principal)
CPT/HCPCS: 81001; 87077; 87086; 87186

== ENCOUNTER → 2022-07-17 | Outpatient (CLI) | payer MEDICARE, OTHER ==
[2022-07-17 13:22] LABS: Albumin, Blood 3.3 g/dL (3.4-5.0); Anion Gap 8 mmol/L (6-16); BASOPHILS ABSOLUTE AUTO 0.07 K/mm3 (0.00-0.23); BASOPHILS PERCENT AUTO 1 % (0-2); Blood Urea Nitrogen 100 mg/dL (8-24); Bun/Creatinine Ratio 53.8 (12.0-20.0); CO2, Blood 25 mmol/L (21-32); Calcium, Blood 9.4 mg/dL (8.5-10.1); Chloride, Blood 107 mmol/L (98-108); Creatinine, Blood 1.86 mg/dL (0.40-1.00); EOSINOPHILS ABSOLUTE AUTO 0.32 K/mm3 (0.00-0.68); EOSINOPHILS PERCENT AUTO 3 % (0-6); Glomerular Filtration Rate 26 (60-); Glucose, Blood 85 mg/dL (70-99); Hematocrit 36.5 % (33.0-51.0); Hemoglobin 12.3 g/dL (11.5-16.0); IMMATURE GRAN ABSOLUTE AUTO 0.06 K/mm3 (0.00-0.10); IMMATURE GRAN PERCENT AUTO 1 % (0-1); LYMPHOCYTES ABSOLUTE AUTO 3.37 K/mm3 (0.84-5.20); LYMPHOCYTES PERCENT AUTO 28 % (21-46); MONOCYTES ABSOLUTE AUTO 1.31 K/mm3 (0.16-1.47); MONOCYTES PERCENT AUTO 11 % (4-13); Mean Corpuscular HGB 31.7 pg (26.0-34.0); Mean Corpuscular HGB Conc 33.7 g/dL (31.5-36.5); Mean Corpuscular Volume 94 fL (80-100); Mean Platelet Volume 12.1 fL (9.1-12.4); NEUTROPHILS ABSOLUTE AUTO 6.79 K/mm3 (1.96-9.15); NEUTROPHILS PERCENT AUTO 57 % (41-73); Phosphorus, Blood 4.3 mg/dL (2.5-4.9); Platelet Count 227 K/mm3 (150-400); RDW Coefficient Variation 19.3 % (11.7-14.2); RDW Standard Deviation 66.2 fL (35.1-46.3); Red Blood Cell Count 3.88 M/mm3 (3.80-5.20); Sodium, Blood 140 mmol/L (136-145); White Blood Cell Count 11.92 K/mm3 (4.00-11.30)
[2022-07-17 13:23] LABS: Albumin, Blood 3.3 g/dL (3.4-5.0); Albumin/Globulin Ratio 0.8 (0.8-1.8); Bilirubin, Total 0.4 mg/dL (0.1-1.0); Bun/Creatinine Ratio 52.4 (12.0-20.0); Calcium, Blood 9.4 mg/dL (8.5-10.1); Creatinine, Blood 1.87 mg/dL (0.40-1.00); Globulin, Blood 3.9 g/dL (2.2-4.0); Potassium, Blood 3.9 mmol/L (3.5-5.5); Total Protein, Blood 7.2 g/dL (6.4-8.2)
[2022-07-17 13:35] LABS: Percent Saturation 17.2 % (15.0-50.0)
[2022-07-17 14:12] LABS: Creatinine, Urine Random 55.3 mg/dL (27.00-270.00); Protein, Urine Random 10.5 mg/dL (0.0-11.9); Protein/Creat Ratio, Ur Random 0.2
== END ==
LOC: LAB SHORT 10:26 → EDSTATUS 16:13
PROVIDERS: Hospitalist; Internal Medicine Nephrology
DX: I13.0 Hypertensive heart and chronic kidney disease with heart failure and stage 1 through stage 4 chronic kidney disease, or unspecified chronic kidney disease (principal); I50.30 Unspecified diastolic (congestive) heart failure; E11.22 Type 2 diabetes mellitus with diabetic chronic kidney disease; N18.4 Chronic kidney disease, stage 4 (severe); D63.1 Anemia in chronic kidney disease; E55.9 Vitamin D deficiency, unspecified; E11.65 Type 2 diabetes mellitus with hyperglycemia
CPT/HCPCS: 80053; 80069; 82306; 82570; 82728; 83036; 83540; 83550; 83880; 83970; 84100; 84156; 85025

== ENCOUNTER → 2022-09-05 | Outpatient (CLI) | payer MEDICARE, OTHER ==
[~2022-09-05] MED LIST changes: +Isosorbide Mono30 MG; +LOSA25
[2022-09-05 15:50] LABS: BASOPHILS ABSOLUTE AUTO 0.08 K/mm3 (0.00-0.23); BASOPHILS PERCENT AUTO 1 % (0-2); EOSINOPHILS ABSOLUTE AUTO 0.53 K/mm3 (0.00-0.68); EOSINOPHILS PERCENT AUTO 6 % (0-6); Hematocrit 36.1 % (33.0-51.0); IMMATURE GRAN ABSOLUTE AUTO 0.05 K/mm3 (0.00-0.10); IMMATURE GRAN PERCENT AUTO 1 % (0-1); LYMPHOCYTES ABSOLUTE AUTO 3.13 K/mm3 (0.84-5.20); LYMPHOCYTES PERCENT AUTO 35 % (21-46); MONOCYTES ABSOLUTE AUTO 0.98 K/mm3 (0.16-1.47); MONOCYTES PERCENT AUTO 11 % (4-13); Mean Corpuscular HGB 32.9 pg (26.0-34.0); Mean Corpuscular HGB Conc 33.2 g/dL (31.5-36.5); Mean Corpuscular Volume 99 fL (80-100); Mean Platelet Volume 11.7 fL (9.1-12.4); NEUTROPHILS ABSOLUTE AUTO 4.06 K/mm3 (1.96-9.15); NEUTROPHILS PERCENT AUTO 46 % (41-73); Platelet Count 229 K/mm3 (150-400); RDW Coefficient Variation 15.5 % (11.7-14.2); RDW Standard Deviation 56.1 fL (35.1-46.3); Red Blood Cell Count 3.65 M/mm3 (3.80-5.20); White Blood Cell Count 8.83 K/mm3 (4.00-11.30)
[2022-09-05 18:20] LABS: Albumin, Blood 3.4 g/dL (3.4-5.0); Anion Gap 6 mmol/L (6-16); Blood Urea Nitrogen 73 mg/dL (8-24); Bun/Creatinine Ratio 44.8 (12.0-20.0); CO2, Blood 25 mmol/L (21-32); Calcium, Blood 9.4 mg/dL (8.5-10.1); Chloride, Blood 105 mmol/L (98-108); Creatinine, Blood 1.63 mg/dL (0.40-1.00); Glomerular Filtration Rate 31 (60-); Glucose, Blood 139 mg/dL (70-99); Phosphorus, Blood 3.5 mg/dL (2.5-4.9); Potassium, Blood 4.1 mmol/L (3.5-5.5); Sodium, Blood 136 mmol/L (136-145)
== END | disposition home or self-care (01) ==
LOC: LAB SHORT 08:30 → LAB 08:30
PROVIDERS: Internal Medicine Nephrology
DX: N18.9 Chronic kidney disease, unspecified (principal)
CPT/HCPCS: 80069; 85025

== ENCOUNTER → 2022-10-06 | Outpatient (CLI) | payer MEDICARE, OTHER ==
[2022-10-06 16:12] LABS: BASOPHILS ABSOLUTE AUTO 0.08 K/mm3 (0.00-0.23); BASOPHILS PERCENT AUTO 1 % (0-2); EOSINOPHILS ABSOLUTE AUTO 0.25 K/mm3 (0.00-0.68); EOSINOPHILS PERCENT AUTO 3 % (0-6); Hematocrit 34.9 % (33.0-51.0); Hemoglobin 11.5 g/dL (11.5-16.0); IMMATURE GRAN ABSOLUTE AUTO 0.04 K/mm3 (0.00-0.10); IMMATURE GRAN PERCENT AUTO 1 % (0-1); LYMPHOCYTES ABSOLUTE AUTO 3.22 K/mm3 (0.84-5.20); LYMPHOCYTES PERCENT AUTO 36 % (21-46); MONOCYTES ABSOLUTE AUTO 0.89 K/mm3 (0.16-1.47); MONOCYTES PERCENT AUTO 10 % (4-13); Mean Corpuscular HGB 32.1 pg (26.0-34.0); Mean Corpuscular Volume 98 fL (80-100); Mean Platelet Volume 11.9 fL (9.1-12.4); NEUTROPHILS ABSOLUTE AUTO 4.39 K/mm3 (1.96-9.15); NEUTROPHILS PERCENT AUTO 50 % (41-73); Platelet Count 176 K/mm3 (150-400); RDW Coefficient Variation 14.6 % (11.7-14.2); RDW Standard Deviation 52.6 fL (35.1-46.3); Red Blood Cell Count 3.58 M/mm3 (3.80-5.20); White Blood Cell Count 8.87 K/mm3 (4.00-11.30)
[2022-10-06 22:25] LABS: Percent Saturation 23.8 % (15.0-50.0)
== END | disposition home or self-care (01) ==
LOC: LAB SHORT 13:10
PROVIDERS: Internal Medicine Hematology & Oncology
DX: C18.2 Malignant neoplasm of ascending colon (principal)
CPT/HCPCS: 82728; 83540; 83550; 85025; 85651

== ENCOUNTER → 2022-11-06 | Outpatient (CLI) | payer MEDICARE, OTHER ==
[2022-11-06 15:58] LABS: BASOPHILS ABSOLUTE AUTO 0.06 K/mm3 (0.00-0.23); BASOPHILS PERCENT AUTO 1 % (0-2); EOSINOPHILS ABSOLUTE AUTO 0.21 K/mm3 (0.00-0.68); EOSINOPHILS PERCENT AUTO 2 % (0-6); Hematocrit 34.8 % (33.0-51.0); Hemoglobin 11.8 g/dL (11.5-16.0); IMMATURE GRAN ABSOLUTE AUTO 0.03 K/mm3 (0.00-0.10); IMMATURE GRAN PERCENT AUTO 0 % (0-1); LYMPHOCYTES ABSOLUTE AUTO 3.39 K/mm3 (0.84-5.20); LYMPHOCYTES PERCENT AUTO 39 % (21-46); MONOCYTES PERCENT AUTO 10 % (4-13); Mean Corpuscular HGB Conc 33.9 g/dL (31.5-36.5); Mean Corpuscular Volume 94 fL (80-100); Mean Platelet Volume 11.5 fL (9.1-12.4); NEUTROPHILS ABSOLUTE AUTO 4.18 K/mm3 (1.96-9.15); NEUTROPHILS PERCENT AUTO 48 % (41-73); Platelet Count 192 K/mm3 (150-400); RDW Coefficient Variation 14.6 % (11.7-14.2); RDW Standard Deviation 49.9 fL (35.1-46.3); Red Blood Cell Count 3.69 M/mm3 (3.80-5.20); White Blood Cell Count 8.77 K/mm3 (4.00-11.30)
[2022-11-06 16:25] LABS: Magnesium, Blood 2.3 mg/dL (1.6-2.4)
[2022-11-06 16:29] LABS: Albumin, Blood 3.8 g/dL (3.4-5.0); Albumin/Globulin Ratio 1.2 (0.8-1.8); Bilirubin, Total 0.5 mg/dL (0.1-1.0); Bun/Creatinine Ratio 49.7 (12.0-20.0); CHOL/HDL RATIO 2.1; Calcium, Blood 9.4 mg/dL (8.5-10.1); Cholesterol 100 mg/dL (50-200); Creatinine, Blood 1.99 mg/dL (0.40-1.00); Ferritin, Serum 91 ng/mL (8-252); Globulin, Blood 3.1 g/dL (2.2-4.0); HDL Cholesterol 47 mg/dL (>39); Iron Serum 88 ug/dL (50-170); LDL/HDL RATIO 0.9; Low Density Lipoprotein Chol 41 mg/dL (0-110); Phosphorus, Blood 4.3 mg/dL (2.5-4.9); Potassium, Blood 4.3 mmol/L (3.5-5.5); Total Iron Binding Capacity 367 ug/dL (250-450); Total Protein, Blood 6.9 g/dL (6.4-8.2); Triglycerides 61 mg/dL (30-160); Very Low Density Lipoprot Chol 12 mg/dL (6-32)
[2022-11-06 16:34] LABS: Thyroid Stimulating Hormone 0.969 uIU/mL (0.360-4.800)
== END | disposition home or self-care (01) ==
LOC: LAB SHORT 08:15 → EDSTATUS 16:50
PROVIDERS: Hospitalist
DX: E11.65 Type 2 diabetes mellitus with hyperglycemia (principal); E11.22 Type 2 diabetes mellitus with diabetic chronic kidney disease; I13.0 Hypertensive heart and chronic kidney disease with heart failure and stage 1 through stage 4 chronic kidney disease, or unspecified chronic kidney disease; I50.30 Unspecified diastolic (congestive) heart failure; N18.4 Chronic kidney disease, stage 4 (severe); E04.1 Nontoxic single thyroid nodule; E78.2 Mixed hyperlipidemia; D63.1 Anemia in chronic kidney disease
CPT/HCPCS: 80053; 80061; 82306; 82728; 83036; 83540; 83550; 83735; 83880; 83970; 84100; 84443; 85025

== ENCOUNTER → 2023-01-05 | Outpatient (CLI) | payer MEDICARE, OTHER ==
[2023-01-05 18:06] LABS: BASOPHILS ABSOLUTE AUTO 0.07 K/mm3 (0.00-0.23); BASOPHILS PERCENT AUTO 1 % (0-2); EOSINOPHILS ABSOLUTE AUTO 0.35 K/mm3 (0.00-0.68); EOSINOPHILS PERCENT AUTO 3 % (0-6); Hematocrit 38.4 % (33.0-51.0); Hemoglobin 12.7 g/dL (11.5-16.0); IMMATURE GRAN ABSOLUTE AUTO 0.07 K/mm3 (0.00-0.10); IMMATURE GRAN PERCENT AUTO 1 % (0-1); LYMPHOCYTES ABSOLUTE AUTO 3.82 K/mm3 (0.84-5.20); LYMPHOCYTES PERCENT AUTO 33 % (21-46); MONOCYTES ABSOLUTE AUTO 1.22 K/mm3 (0.16-1.47); MONOCYTES PERCENT AUTO 11 % (4-13); Mean Corpuscular HGB 32.1 pg (26.0-34.0); Mean Corpuscular HGB Conc 33.1 g/dL (31.5-36.5); Mean Corpuscular Volume 97 fL (80-100); Mean Platelet Volume 11.9 fL (9.1-12.4); NEUTROPHILS ABSOLUTE AUTO 6.13 K/mm3 (1.96-9.15); NEUTROPHILS PERCENT AUTO 53 % (41-73); Platelet Count 218 K/mm3 (150-400); RDW Coefficient Variation 15.1 % (11.7-14.2); RDW Standard Deviation 54.3 fL (35.1-46.3); Red Blood Cell Count 3.96 M/mm3 (3.80-5.20); White Blood Cell Count 11.66 K/mm3 (4.00-11.30)
[2023-01-05 18:51] LABS: Alanine Aminotransfer (ALT/SGP 38 U/L (12-78); Albumin, Blood 3.6 g/dL (3.4-5.0); Albumin/Globulin Ratio 0.9 (0.8-1.8); Alk Phos 138 U/L (50-136); Anion Gap 7 mmol/L (6-16); Aspartate Aminotrans (AST/SGOT 34 U/L (12-37); Bilirubin, Total 0.6 mg/dL (0.1-1.0); Blood Urea Nitrogen 78 mg/dL (8-24); Bun/Creatinine Ratio 41.1 (12.0-20.0); CO2, Blood 25 mmol/L (21-32); Calcium, Blood 9.9 mg/dL (8.5-10.1); Chloride, Blood 101 mmol/L (98-108); Globulin, Blood 3.9 g/dL (2.2-4.0); Glomerular Filtration Rate 25 (60-); Glucose, Blood 241 mg/dL (70-99); Phosphorus, Blood 3.8 mg/dL (2.5-4.9); Potassium, Blood 3.8 mmol/L (3.5-5.5); Sodium, Blood 133 mmol/L (136-145); Total Protein, Blood 7.5 g/dL (6.4-8.2)
[2023-01-05 19:11] LABS: Creatinine, Urine Random 25.4 mg/dL (27.00-270.00); Microalb/Creat Ratio UR, Rand 44.882 mg/g (0.000-30.000); Microalbumin, Random Urine 11.4 mg/L (0.000-20.000)
== END ==
LOC: LAB 14:15 → LAB SHORT 14:15
PROVIDERS: Hospitalist
DX: E11.65 Type 2 diabetes mellitus with hyperglycemia (principal); E11.22 Type 2 diabetes mellitus with diabetic chronic kidney disease; N18.4 Chronic kidney disease, stage 4 (severe); I13.0 Hypertensive heart and chronic kidney disease with heart failure and stage 1 through stage 4 chronic kidney disease, or unspecified chronic kidney disease; I50.30 Unspecified diastolic (congestive) heart failure
CPT/HCPCS: 80053; 82043; 82570; 83036; 83880; 84100; 85025

== ENCOUNTER → 2023-03-23 | Outpatient (CLI) | payer MEDICARE, OTHER ==
[2023-03-23 16:59] LABS: Source, Urine Clean Catch
[2023-03-23 17:05] LABS: BASOPHILS ABSOLUTE AUTO 0.07 K/mm3 (0.00-0.23); BASOPHILS PERCENT AUTO 1 % (0-2); EOSINOPHILS ABSOLUTE AUTO 0.26 K/mm3 (0.00-0.68); EOSINOPHILS PERCENT AUTO 2 % (0-6); Hematocrit 37.2 % (33.0-51.0); Hemoglobin 12.3 g/dL (11.5-16.0); IMMATURE GRAN ABSOLUTE AUTO 0.09 K/mm3 (0.00-0.10); IMMATURE GRAN PERCENT AUTO 1 % (0-1); LYMPHOCYTES ABSOLUTE AUTO 3.49 K/mm3 (0.84-5.20); LYMPHOCYTES PERCENT AUTO 30 % (21-46); MONOCYTES ABSOLUTE AUTO 1.24 K/mm3 (0.16-1.47); MONOCYTES PERCENT AUTO 11 % (4-13); Mean Corpuscular HGB 32.2 pg (26.0-34.0); Mean Corpuscular HGB Conc 33.1 g/dL (31.5-36.5); Mean Corpuscular Volume 97 fL (80-100); Mean Platelet Volume 10.9 fL (9.1-12.4); NEUTROPHILS ABSOLUTE AUTO 6.62 K/mm3 (1.96-9.15); NEUTROPHILS PERCENT AUTO 56 % (41-73); Platelet Count 247 K/mm3 (150-400); RDW Coefficient Variation 15.8 % (11.7-14.2); RDW Standard Deviation 55.8 fL (35.1-46.3); Red Blood Cell Count 3.82 M/mm3 (3.80-5.20); White Blood Cell Count 11.77 K/mm3 (4.00-11.30)
[2023-03-23 17:16] LABS: Appearance, Urine Clear (Clear); Bilirubin, Urine Neg (Neg); Blood, Urine Neg (Neg); Color, Urine Yellow (P-Yellow); Glucose Qualitative, Urine Neg (Neg); Ketones, Urine Neg (Neg); Leukocyte Esterase, Urine Neg (Neg); Nitrite, Urine Neg (Neg); Protein, Urine Neg (Neg); Urobilinogen, Urine NORM (Normal)
[2023-03-23 17:37] LABS: Albumin, Blood 3.5 g/dL (3.4-5.0); Anion Gap 5 mmol/L (6-16); Blood Urea Nitrogen 80 mg/dL (8-24); Bun/Creatinine Ratio 40.6 (12.0-20.0); CO2, Blood 29 mmol/L (21-32); Calcium, Blood 9.9 mg/dL (8.5-10.1); Chloride, Blood 105 mmol/L (98-108); Creatinine, Blood 1.97 mg/dL (0.40-1.00); Ferritin, Serum 98 ng/mL (8-252); Glomerular Filtration Rate 24 (60-); Glucose, Blood 98 mg/dL (70-99); Iron Serum 68 ug/dL (50-170); Percent Saturation 19.9 % (15.0-50.0); Phosphorus, Blood 4.6 mg/dL (2.5-4.9); Sodium, Blood 139 mmol/L (136-145); Total Iron Binding Capacity 342 ug/dL (250-450)
[2023-03-23 18:00] LABS: Creatinine, Urine Random 45.9 mg/dL (27.00-270.00); Microalb/Creat Ratio UR, Rand 18.78 mg/g (0.000-30.000); Microalbumin, Random Urine 8.62 mg/L (0.000-20.000)
== END | disposition home or self-care (01) ==
LOC: LAB 16:15 → LAB SHORT 16:15
PROVIDERS: Hospitalist
DX: E11.22 Type 2 diabetes mellitus with diabetic chronic kidney disease (principal); N18.4 Chronic kidney disease, stage 4 (severe); D63.1 Anemia in chronic kidney disease
CPT/HCPCS: 80069; 81003; 82043; 82570; 82728; 83036; 83540; 83550; 83970; 85025

== ENCOUNTER → 2023-09-04 | Outpatient (CLI) | payer MEDICARE, OTHER | END | disposition home or self-care (01) | LOC: LAB SHORT 07:10 → LAB 07:10 | DX: N64.52 Nipple discharge (principal) | CPT/HCPCS: 84146 ==

== ENCOUNTER → 2023-11-10 | Outpatient (CLI) | payer MEDICARE, OTHER ==
[2023-11-10 14:14] LABS: Albumin, Blood 3.7 g/dL (3.4-5.0); Anion Gap 13 mmol/L (3-11); Blood Urea Nitrogen 101 mg/dL (8-24); Bun/Creatinine Ratio 43.9 (12.0-20.0); CO2, Blood 25 mmol/L (21-32); Chloride, Blood 102 mmol/L (98-108); Glomerular Filtration Rate 20 (60-); Glucose, Blood 142 mg/dL (70-99); Phosphorus, Blood 3.4 mg/dL (2.5-4.9); Potassium, Blood 4.3 mmol/L (3.5-5.5); Sodium, Blood 136 mmol/L (136-145)
== END | disposition home or self-care (01) ==
LOC: LAB SHORT 12:13 → LAB 12:13
PROVIDERS: Hospitalist
DX: I12.9 Hypertensive chronic kidney disease with stage 1 through stage 4 chronic kidney disease, or unspecified chronic kidney disease (principal); N18.4 Chronic kidney disease, stage 4 (severe)
CPT/HCPCS: 80069

== ENCOUNTER → 2024-08-08 | Outpatient (CLI) | payer MEDICARE ==
[2024-08-08 14:16] LABS: Source, Urine Clean Catch
[2024-08-08 15:00] LABS: Appearance, Urine Clear (Clear); Bilirubin, Urine Neg (Neg); Blood, Urine Neg (Neg); Glucose Qualitative, Urine 4+ (Neg); Ketones, Urine Neg (Neg); Leukocyte Esterase, Urine Neg (Neg); Nitrite, Urine Neg (Neg); Protein, Urine 1+ (Neg); Specific Gravity, Urine 1.015 (1.003-1.022); Urobilinogen, Urine NORM (Normal)
[2024-08-08 15:05] LABS: Color, Urine Pale Yellow (P-Yellow)
[2024-08-08 16:07] LABS: Creatinine, Urine Random 24.7 mg/dL (27.00-270.00); Protein, Urine Random 8.5 mg/dL (0.0-11.9); Protein/Creat Ratio, Ur Random 0.3
== END ==
LOC: LAB 12:45 → LAB SHORT 12:45 → LAB FUT 05-31 15:40
PROVIDERS: Hospitalist
DX: N39.0 Urinary tract infection, site not specified (principal); I12.9 Hypertensive chronic kidney disease with stage 1 through stage 4 chronic kidney disease, or unspecified chronic kidney disease; N18.4 Chronic kidney disease, stage 4 (severe)
CPT/HCPCS: 82570; 84156

== ENCOUNTER 2024-09-28 14:09 | Inpatient (IN) | payer MEDICARE ==
[~2024-09-28] VITALS: Ht 144.8 cm; Wt 75.8 kg
[2024-09-28 15:15] LABS: BASOPHILS ABSOLUTE AUTO 0.05 K/mm3 (0.00-0.23); BASOPHILS PERCENT AUTO 1 % (0-2); EOSINOPHILS ABSOLUTE AUTO 0.15 K/mm3 (0.00-0.68); EOSINOPHILS PERCENT AUTO 2 % (0-6); Hematocrit 36.4 % (33.0-51.0); Hemoglobin 12.3 g/dL (11.5-16.0); IMMATURE GRAN ABSOLUTE AUTO 0.09 K/mm3 (0.00-0.10); IMMATURE GRAN PERCENT AUTO 1 % (0-1); LYMPHOCYTES ABSOLUTE AUTO 2.25 K/mm3 (0.84-5.20); LYMPHOCYTES PERCENT AUTO 24 % (21-46); MONOCYTES ABSOLUTE AUTO 0.73 K/mm3 (0.16-1.47); MONOCYTES PERCENT AUTO 8 % (4-13); Mean Corpuscular HGB 33.5 pg (26.0-34.0); Mean Corpuscular HGB Conc 33.8 g/dL (31.5-36.5); Mean Corpuscular Volume 99 fL (80-100); Mean Platelet Volume 11.6 fL (9.1-12.4); NEUTROPHILS ABSOLUTE AUTO 6.01 K/mm3 (1.96-9.15); NEUTROPHILS PERCENT AUTO 65 % (41-73); Platelet Count 177 K/mm3 (150-400); RDW Standard Deviation 54.2 fL (35.1-46.3); Red Blood Cell Count 3.67 M/mm3 (3.80-5.20); White Blood Cell Count 9.28 K/mm3 (4.00-11.30)
[2024-09-28] MEDS ORDERED: ATOR10 PO (15:24)
[2024-09-28] MEDS ORDERED: BISA10S PR (15:25)
[2024-09-28] MEDS ORDERED: FARXIGA10 MG PO ×2 (15:26→20:29)
[2024-09-28] MEDS ORDERED: Isosorbide Mono30 MG PO (15:27)
[2024-09-28] MEDS ORDERED: OMEP20ER PO (15:29)
[2024-09-28] MEDS ORDERED: SOAANZ40 M1 PO (15:30)
[2024-09-28 15:42] LABS: Bun/Creatinine Ratio 38.8 (12.0-20.0); Calcium, Blood 9.3 mg/dL (8.5-10.1); Creatinine, Blood 2.58 mg/dL (0.40-1.00); Free Thyroxine 1.44 ng/dL (0.70-1.60); Magnesium, Blood 2.3 mg/dL (1.6-2.4); Potassium, Blood 4.4 mmol/L (3.5-5.5); Thyroid Stimulating Hormone 1.4 uIU/mL (0.360-4.800)
[2024-09-28 17:30] LABS: Albumin, Blood 3.5 g/dL (3.4-5.0); Albumin/Globulin Ratio 1.1 (0.8-1.8); Bilirubin, Total 0.5 mg/dL (0.1-1.0); Bun/Creatinine Ratio 39.2 (12.0-20.0); Calcium, Blood 9.1 mg/dL (8.5-10.1); Creatinine, Blood 2.55 mg/dL (0.40-1.00); Globulin, Blood 3.2 g/dL (2.2-4.0); Total Protein, Blood 6.7 g/dL (6.4-8.2)
[2024-09-28] MEDS ORDERED: Atropine Sulfate 0.1 MG/ML 10ML SYR IV PRN (17:40)
[2024-09-28] MEDS ORDERED: FLU VACC TS2024-25(6MOS UP)/PF 45 MCG/0.5 ML SYRINGE IM SCH (17:40)
[2024-09-28] MEDS ORDERED: Bisacodyl 10 MG Supp PR PRN (17:45)
[2024-09-28 21:05] VITALS: BP 151/43
--- NOTE | 2024-09-28 21:31 | NUR ---
ADMISSION REPORT RECEIVED FROM ER NURSE. PATIENT ARRIVES TO PCU 13, SLID OVER TO PCU BED WITH ASSISTANCE OF STAFF. PATIENT IS ALERT, ORIENTED x4, ABLE TO MAKE NEEDS KNOWN TO STAFF. BP STABLE. ZOLL PADS IN PLACE, ZOLL IN MONITOR MODE. TELE READING SB, BBB, FIRST DEG. 34 PER MEDICAL CLAIMS MANAGER. PATIENT ASYMPTOMATIC AT THIS TIME. HOME CPAP AT BEDSIDE WITH PATIENT, RT TO SET UP. PATIENT ORIENTED TO ROOM AND CALL LIGHT SYSTEM.
[2024-09-28] MEDS ORDERED: Insulin Human Lispro 100 Units/ML 3ML Syringe SC ONE (21:40)
[2024-09-28] MEDS ORDERED: Insulin Regular 100 UNIT/ML 10ML Vial SC SCH (22:30)
[2024-09-28 23:24] VITALS: BP 149/34
--- NOTE | 2024-09-29 00:18 | NUR ---
UPDATE PATIENT SUSTAINING HR OF 30 FOR MORE THAN 3 MINUTES ON TELE. WHEN THIS RN INTO ROOM, PATIENT RESTING WITH EYES CLOSED. PATIENT WOKE TO VERBAL STIMULI. AT THIS TIME, PATIENT SUSTAINING 29 FOR APPROXIMATELY 2 ADDITIONAL MINUTES. ATROPIINE GIVEN PER EMAR. PATIENT CONTINUES TO VERBALIZE NO SYMPTOMES. ZOLL CONNECTED AND DEFIB PADS IN PLACE. HR UP TO 35 AFTER ATROPINE ADMINISTRATION.
[2024-09-29 04:14] VITALS: BP 106/59
[2024-09-29 04:58] LABS: BASOPHILS ABSOLUTE AUTO 0.05 K/mm3 (0.00-0.23); BASOPHILS PERCENT AUTO 1 % (0-2); EOSINOPHILS PERCENT AUTO 2 % (0-6); Hematocrit 33.2 % (33.0-51.0); Hemoglobin 11.3 g/dL (11.5-16.0); IMMATURE GRAN ABSOLUTE AUTO 0.04 K/mm3 (0.00-0.10); IMMATURE GRAN PERCENT AUTO 1 % (0-1); LYMPHOCYTES ABSOLUTE AUTO 2.58 K/mm3 (0.84-5.20); LYMPHOCYTES PERCENT AUTO 31 % (21-46); MONOCYTES ABSOLUTE AUTO 1.01 K/mm3 (0.16-1.47); MONOCYTES PERCENT AUTO 12 % (4-13); Mean Corpuscular HGB 33.6 pg (26.0-34.0); Mean Corpuscular Volume 99 fL (80-100); Mean Platelet Volume 11.2 fL (9.1-12.4); NEUTROPHILS ABSOLUTE AUTO 4.49 K/mm3 (1.96-9.15); NEUTROPHILS PERCENT AUTO 54 % (41-73); Platelet Count 168 K/mm3 (150-400); RDW Coefficient Variation 15.1 % (11.7-14.2); RDW Standard Deviation 54.5 fL (35.1-46.3); Red Blood Cell Count 3.36 M/mm3 (3.80-5.20); White Blood Cell Count 8.37 K/mm3 (4.00-11.30)
--- NOTE | 2024-09-29 05:31 | NUR ---
SHIFT SUMMARY PATIENT ALERT, ORIENTED x4. VERY PLEASANT AND COOPERATIVE WITH CARE. ZOLL AND PACER PADS CONNECTED TO PATIENT DURING THE NIGHT. ON TELE, SB WITH SECOND DEGREE HB, RATE 30-35, LOW 26 DURING THE NIGHT. PATIENT ASYMPTOMATIC OF LOW HR. BP STABLE. ON HOME CPAP WHILE SLEEPING, SPO2 >90%. PATIENT UP TO BEDSIDE COMMODE WITH STAFF ASSIST, ADEQUATE OUTPUT DURING THE NIGHT. PATIENT KEPT NPO SINCE 0000 AWAITING CARDIOLOGY CONSULT. NO OTHER CHANGES, WILL REPORT TO DAY SHIFT RN.
[2024-09-29 05:32] LABS: Bun/Creatinine Ratio 40.7 (12.0-20.0); Calcium, Blood 9.4 mg/dL (8.5-10.1); Creatinine, Blood 2.41 mg/dL (0.40-1.00); Potassium, Blood 4.3 mmol/L (3.5-5.5)
[2024-09-29] MEDS ORDERED: Omeprazole 20 MG CapCR PO SCH (06:00)
[2024-09-29] MEDS ORDERED: Insulin Regular 100 UNIT/ML 10ML Vial SC SCH ×2 (07:30)
[2024-09-29 07:53] VITALS: BP 136/46
[2024-09-29] MEDS ORDERED: Isosorbide Mononitrate 60 MG TABCR PO SCH (09:00)
[2024-09-29] MEDS ORDERED: Cholecalciferol 1000 Unit Tablet (=25MCG) PO SCH (09:00)
[2024-09-29] MEDS ORDERED: Atorvastatin 10 MG Tab PO SCH (09:00)
[2024-09-29] MEDS ORDERED: Empagliflozin 25 MG TAB PO SCH (09:00)
--- NOTE | 2024-09-29 11:06 | NUR ---
am note this rn assumed care at 0700. vital signs stable. tele sinusbrady 30-50s. patient is alert and oriented x4. neuro is intact. perrla. patient is able to make needs known and use call light appropriately. patient denies pain, chest pain/pressure or shortness of breath. see shift assessment for further detials. dreiling in to see patient and discussed heart rate and that patient does not need pace maker at this time, and plan to stop metoprolol, and okay to go home. Fani into see patient and plan for patient to go home today pending echo.
[2024-09-29 11:36] VITALS: BP 139/100
--- NOTE | 2024-09-29 11:57 | NUR ---
THIS RN ASSITED PT TO BATHROOM VIA FWW, SBA AT 1135. PT HR REMAINED IN THE 40'S DURING THE ENTIRE PROCESS OF TRANSFERING TO TOILOET AND THEN TO CHAIR. PT ASYMPTOMATIC.
--- NOTE | 2024-09-29 14:32 | NUR ---
DISCHARGE SUMMARY DISCHARGE PACKET GONE OVER WITH PT AND PT FRIEND [id number]. PT DISCHARGD AT 1410 VIA WHEELCHAIR AND ABLE TO TRANSFER SEKF TO AND FORM WHEELCHAIR ON HER OWN, TOLERATED WELL. PT PERSONAL BELONGINGS WITH PT AT TIME OF DISCHARGE. DISCHARGE PACKET WITH PT AT TIME OF DISCHARGE.
== END 2024-09-29 14:17 | disposition home or self-care (01) | DRG 309 ==
LOC: ER 14:09 → ERHOLD 17:38 → PCU 17:38
PROVIDERS: Emergency Medicine; ADMIT Family Medicine
DX: I44.1 Atrioventricular block, second degree (principal); E87.1 Hypo-osmolality and hyponatremia; I13.0 Hypertensive heart and chronic kidney disease with heart failure and stage 1 through stage 4 chronic kidney disease, or unspecified chronic kidney disease; N18.4 Chronic kidney disease, stage 4 (severe); I25.10 Atherosclerotic heart disease of native coronary artery without angina pectoris; G47.30 Sleep apnea, unspecified; I50.9 Heart failure, unspecified; I48.0 Paroxysmal atrial fibrillation; E11.65 Type 2 diabetes mellitus with hyperglycemia; E11.22 Type 2 diabetes mellitus with diabetic chronic kidney disease; E78.5 Hyperlipidemia, unspecified; K21.9 Gastro-esophageal reflux disease without esophagitis; I34.0 Nonrheumatic mitral (valve) insufficiency; Z85.038 Personal history of other malignant neoplasm of large intestine; Z95.1 Presence of aortocoronary bypass graft; Z95.5 Presence of coronary angioplasty implant and graft; Z79.01 Long term (current) use of anticoagulants; Z79.84 Long term (current) use of oral hypoglycemic drugs
CPT/HCPCS: 36415; 71045; 80048; 80053; 82947; 83036; 83735; 84439; 84443; 84484; 85025; 93005; 93010; 93306; 94762; 99285-25; A9270; J0461; J1815

== ENCOUNTER 2024-10-18 14:31 | Inpatient (IN) | payer MEDICARE, OTHER ==
[~2024-10-18] VITALS: Ht 170.2 cm; Wt 80.3 kg
[~2024-10-18 14:31] MED LIST changes: +FARXIGA10 MG PO; +Isosorbide Mono30 MG PO; +SOAANZ40 M1 PO
[2024-10-18 15:36] LABS: BASOPHILS ABSOLUTE AUTO 0.06 K/mm3 (0.00-0.23); BASOPHILS PERCENT AUTO 1 % (0-2); EOSINOPHILS ABSOLUTE AUTO 0.12 K/mm3 (0.00-0.68); EOSINOPHILS PERCENT AUTO 1 % (0-6); Hematocrit 34.7 % (33.0-51.0); Hemoglobin 11.8 g/dL (11.5-16.0); IMMATURE GRAN ABSOLUTE AUTO 0.07 K/mm3 (0.00-0.10); IMMATURE GRAN PERCENT AUTO 1 % (0-1); LYMPHOCYTES ABSOLUTE AUTO 1.62 K/mm3 (0.84-5.20); LYMPHOCYTES PERCENT AUTO 15 % (21-46); MONOCYTES ABSOLUTE AUTO 0.99 K/mm3 (0.16-1.47); MONOCYTES PERCENT AUTO 9 % (4-13); Mean Corpuscular Volume 100 fL (80-100); Mean Platelet Volume 11.7 fL (9.1-12.4); NEUTROPHILS ABSOLUTE AUTO 8.05 K/mm3 (1.96-9.15); NEUTROPHILS PERCENT AUTO 74 % (41-73); Platelet Count 212 K/mm3 (150-400); RDW Coefficient Variation 15.7 % (11.7-14.2); RDW Standard Deviation 56.1 fL (35.1-46.3); Red Blood Cell Count 3.47 M/mm3 (3.80-5.20); White Blood Cell Count 10.91 K/mm3 (4.00-11.30)
[2024-10-18 15:48] LABS: Albumin, Blood 3.4 g/dL (3.4-5.0); Albumin/Globulin Ratio 0.9 (0.8-1.8); Bilirubin, Total 1.3 mg/dL (0.1-1.0); Bun/Creatinine Ratio 31.7 (12.0-20.0); Calcium, Blood 9.4 mg/dL (8.5-10.1); Creatinine, Blood 2.3 mg/dL (0.40-1.00); Globulin, Blood 3.6 g/dL (2.2-4.0); Potassium, Blood 5.2 mmol/L (3.5-5.5)
[2024-10-18 16:19] LABS: Influenza A, PCR NEGATIVE (NEGATIVE); Influenza B, PCR NEGATIVE (NEGATIVE); Resp Syncytial Virus, PCR NEGATIVE (NEGATIVE); SARS-Cov-2 (COVID-19) PCR, MMC NEGATIVE (NEGATIVE)
[2024-10-18] MEDS ORDERED: Insulin Glargine-Yfg SC (18:21)
[2024-10-18] MEDS ORDERED: ELIQUIS2.5 M1 PO (18:22)
[2024-10-18] MEDS ORDERED: ATOR10 PO (18:23)
[2024-10-18] MEDS ORDERED: JARDIANCE10 MG PO (18:24)
[2024-10-18] MEDS ORDERED: Ondansetron 4 MG TAB PO PRN (18:25)
[2024-10-18] MEDS ORDERED: Magnesium Hydroxide Conc 10 ML UDC PO PRN (18:25)
[2024-10-18] MEDS ORDERED: Flonase 0.05% Nasal (18:25)
[2024-10-18] MEDS ORDERED: Humalog KwikPen 100 SC (18:27)
[2024-10-18] MEDS ORDERED: ISOSORBIDE MONO60 MG PO (18:28)
[2024-10-18] MEDS ORDERED: OMEP20ER PO (18:29)
[2024-10-18] MEDS ORDERED: ALDACTONE25 MG PO (18:30)
[2024-10-18] MEDS ORDERED: Benzonatate 100 MG Cap PO PRN (18:30)
[2024-10-18] MEDS ORDERED: Bisacodyl 10 MG Supp PR PRN (18:30)
[2024-10-18] MEDS ORDERED: TORS10 PO (18:30)
[2024-10-18] MEDS ORDERED: Vitamin D PO (18:32)
[2024-10-18] MEDS ORDERED: Torsemide 20 MG TAB PO SCH (19:00)
--- NOTE | 2024-10-18 20:16 | NUR ---
ADMISSION NOTE PT ARRIVED TO 363 AT 2015. PT WAS AOX4, CALM AND COOPERATIVE. PT WAS [place]. PT ON 2LNC AND TELEMETRY. PT HAS CONSTANT, DRY HACKING COUGH. THIS RN TO ASSUME CARE.
[2024-10-18 20:31] VITALS: BP 173/42
[2024-10-18] MEDS ORDERED: Fluticasone 0.05% Nasal Spray SCH (21:00)
[2024-10-18] MEDS ORDERED: Insulin Glargine-Yfgn 100 Unit/mL 3 ML SYR SC SCH (21:00)
[2024-10-18] MEDS ORDERED: Apixaban 5 MG Tab PO SCH (21:00)
[2024-10-18 23:23] VITALS: BP 163/33
[2024-10-19] VITALS (7 sets, daily range): BP systolic 138–195; BP diastolic 28–50
[2024-10-19] MEDS ORDERED: ALLO100 PO (02:41)
[2024-10-19] MEDS ORDERED: HUMALOG KW100 UNIT/1 SQ (02:43)
[2024-10-19] MEDS ORDERED: INSULANI SC (02:44)
[2024-10-19 04:54] LABS: BASOPHILS ABSOLUTE AUTO 0.06 K/mm3 (0.00-0.23); BASOPHILS PERCENT AUTO 1 % (0-2); EOSINOPHILS ABSOLUTE AUTO 0.19 K/mm3 (0.00-0.68); EOSINOPHILS PERCENT AUTO 2 % (0-6); Hematocrit 34.5 % (33.0-51.0); Hemoglobin 11.7 g/dL (11.5-16.0); IMMATURE GRAN ABSOLUTE AUTO 0.08 K/mm3 (0.00-0.10); IMMATURE GRAN PERCENT AUTO 1 % (0-1); LYMPHOCYTES ABSOLUTE AUTO 1.29 K/mm3 (0.84-5.20); LYMPHOCYTES PERCENT AUTO 11 % (21-46); MONOCYTES ABSOLUTE AUTO 1.12 K/mm3 (0.16-1.47); MONOCYTES PERCENT AUTO 10 % (4-13); Mean Corpuscular HGB 33.8 pg (26.0-34.0); Mean Corpuscular HGB Conc 33.9 g/dL (31.5-36.5); Mean Corpuscular Volume 100 fL (80-100); Mean Platelet Volume 11.3 fL (9.1-12.4); NEUTROPHILS ABSOLUTE AUTO 8.71 K/mm3 (1.96-9.15); NEUTROPHILS PERCENT AUTO 76 % (41-73); Platelet Count 192 K/mm3 (150-400); RDW Coefficient Variation 15.6 % (11.7-14.2); RDW Standard Deviation 56.2 fL (35.1-46.3); Red Blood Cell Count 3.46 M/mm3 (3.80-5.20); White Blood Cell Count 11.45 K/mm3 (4.00-11.30)
[2024-10-19] MEDS ORDERED: HydrALAZINE HCl 20 MG / ML 1ML Vial IV PRN (05:15)
[2024-10-19 05:22] LABS: Albumin, Blood 3.3 g/dL (3.4-5.0); Bilirubin, Total 1.5 mg/dL (0.1-1.0); Bun/Creatinine Ratio 31.5 (12.0-20.0); Calcium, Blood 9.3 mg/dL (8.5-10.1); Creatinine, Blood 2.22 mg/dL (0.40-1.00); Globulin, Blood 3.3 g/dL (2.2-4.0); Potassium, Blood 3.8 mmol/L (3.5-5.5); Total Protein, Blood 6.6 g/dL (6.4-8.2)
[2024-10-19] MEDS ORDERED: Omeprazole 20 MG CapCR PO SCH (06:00)
[2024-10-19] MEDS ORDERED: Insulin Regular 100 UNIT/ML 10ML Vial SC SCH (07:30)
--- NOTE | 2024-10-19 08:04 | NUR ---
SHIFT SUMMARY PT HAS BEEN RESTING IN BED OVERNIGHT. PT HAS BEEN AOX4, CALM AND COOPERATIVE. PT HAS BEEN ON 2LNC, TELEMETRY ON. SHE HAS BEEN 1PA TO BSC, CONTINENT X2. PT C/O COLD AIR BLOWING OVER HER, WHICH HAS BEEN IRRITATING HER. SHE DESIRED "BETTER ACCOMODATIONS." NO OTHER COMPLAINTS FROM PT. NO ACUTE EVENTS OVERNIGHT.
[2024-10-19] MEDS ORDERED: Losartan Potassium 25 MG Tab PO SCH (09:00)
[2024-10-19] MEDS ORDERED: Cholecalciferol 1000 Unit Tablet (=25MCG) PO SCH (09:00)
[2024-10-19] MEDS ORDERED: Empagliflozin 10 MG TAB PO SCH (09:00)
[2024-10-19] MEDS ORDERED: Spironolactone 25 MG Tab PO SCH (09:00)
[2024-10-19] MEDS ORDERED: Isosorbide Mononitrate 60 MG TABCR PO SCH (09:00)
[2024-10-19] MEDS ORDERED: Allopurinol 100 MG Tab PO SCH (09:00)
[2024-10-19] MEDS ORDERED: Atorvastatin 10 MG Tab PO SCH (09:00)
[2024-10-19 10:23] LABS: Base Excess Venous -2.3 mmol/L; Bicarbonate Venous 22.6 mmol/L (24.0-30.0); PCO2 Venous 39.9 mmHg (38-42); pH Blood Venous 7.37 (7.34-7.37)
[2024-10-19] MEDS ORDERED: Ipratropium/Albuterol SulF 2.5-0.5MG/3 ML Amp INH PRN (13:10)
--- NOTE | 2024-10-19 19:59 | NUR ---
SHIF SUMMARY- PT WAS SEEN BY PULMONOLOGY TODAY, SHE MET WITH PALLIATIVE CARE AFTER THAT AND CHOSE TO CHANGE HER CODE STATUS TO DNR. 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 PT IN BED, CALL LIGHT IN REACH NO S&S OF DISTRESS NOTED AT THE TIME OF BEDSIDE REPORT.
[2024-10-19] MEDS ORDERED: Insulin Glargine-Yfgn 100 Unit/mL 3 ML SYR SC SCH (21:00)
--- NOTE | 2024-10-19 23:13 | NUR ---
AIR POLLUTION SPECIALIST REPORTS HR LOW 30'S FOR A FEW SECONDS AND MOSTLY 35-42 AT THIS TIME. SLEEPING AND PATIENT AWOKE WHEN CHECKING ON HER. WCTM.
[2024-10-20 00:20] VITALS: BP 142/32
--- NOTE | 2024-10-20 04:06 | NUR ---
SHIFT SUMMARY PATIENT HAD NO ACUTE CHANGES. ALERT, ORIENTED, [place], AND ONE ASSIST TO BSC. SOB W/EXERTION. ON 4L O2 NC. USES CPAP WITH 5L O2 BLEED IN. CBG 184. PIV INTACT. TELE MONITOR SB 30'S-40'S. DENIES CHEST PAIN AND N/V. VSS/AFEBRILE. CALL LIGHT IN REACH. BED IN LOWEST POSITION. WILL CONTINUE TO MONITOR UNTIL DAY SHIFT NURSE ASSUMES CARE.
[2024-10-20 05:13] VITALS: BP 157/37
[2024-10-20 07:19] VITALS: BP 149/28
[2024-10-20 10:04] LABS: Bun/Creatinine Ratio 28.7 (12.0-20.0); Calcium, Blood 9.4 mg/dL (8.5-10.1); Creatinine, Blood 2.44 mg/dL (0.40-1.00)
[2024-10-20 10:16] LABS: BASOPHILS ABSOLUTE AUTO 0.09 K/mm3 (0.00-0.23); BASOPHILS PERCENT AUTO 1 % (0-2); EOSINOPHILS ABSOLUTE AUTO 0.45 K/mm3 (0.00-0.68); EOSINOPHILS PERCENT AUTO 4 % (0-6); Hematocrit 35.7 % (33.0-51.0); Hemoglobin 11.7 g/dL (11.5-16.0); IMMATURE GRAN ABSOLUTE AUTO 0.06 K/mm3 (0.00-0.10); IMMATURE GRAN PERCENT AUTO 1 % (0-1); LYMPHOCYTES ABSOLUTE AUTO 2.46 K/mm3 (0.84-5.20); LYMPHOCYTES PERCENT AUTO 22 % (21-46); MONOCYTES PERCENT AUTO 10 % (4-13); Mean Corpuscular HGB 33.5 pg (26.0-34.0); Mean Corpuscular HGB Conc 32.8 g/dL (31.5-36.5); Mean Corpuscular Volume 102 fL (80-100); Mean Platelet Volume 12.1 fL (9.1-12.4); NEUTROPHILS ABSOLUTE AUTO 7.26 K/mm3 (1.96-9.15); NEUTROPHILS PERCENT AUTO 64 % (41-73); NRBC ABSOLUTE 0.02 K/mm3 (0.00-0.02); NRBC Auto 0.2 /100 WBC (0.0-0.2); Platelet Count 190 K/mm3 (150-400); RDW Coefficient Variation 15.7 % (11.7-14.2); RDW Standard Deviation 57.2 fL (35.1-46.3); Red Blood Cell Count 3.49 M/mm3 (3.80-5.20); White Blood Cell Count 11.42 K/mm3 (4.00-11.30)
[2024-10-20] MEDS ORDERED: Insulin Human Lispro 100 Units/ML 3ML Syringe SC SCH (11:30)
--- NOTE | 2024-10-20 14:59 | NUR ---
DELAYED ENTRY FROM 10/19/24: THIS PC RN JOINED VISIT WITH DR. ROSE HE REVIEWED PT'S PULMONARY DX, PROGNOSIS WITH NEW TRAJECTORY. PT AND HER FRIEND, RAKAN EXPRESSED GRATITUDE FOR THE CLEAR, SIMPLE EDUCATION. AFTER DR. ROSE'S VISIT FOCUS WAS SWITCHED TO SYMPTOM MANAGEMENT AND REVIEW OF CODE STATUS. PT IS AWARE OF NEEDING TO MONITOR SODIUM INTAKE. EDUCATION ON CPR VS DNR AND ALL THREE LEVELS OF MEDICAL INTERVENTIONS. PT ELECTED FOR DNR WITH SELECTIVE MEDICAL INTERVENTIONS. NEW POLST WAS COMPLETED AND FILED WITH THE [place] [facility], [facility] MEDICAL RECORDS, EMAR AND FAXED TO [facility]. PC TO REMAIN AVAILABLE NEEDED.
[2024-10-20] MEDS ORDERED: TIOT18 INH (16:22)
--- NOTE | 2024-10-20 16:54 | NUR ---
DISCHARGE NOTE- PT AND CARE TEAM WERE GIVEN VERBAL AND WRITTEN DISCHARGE INSTRUCTIONS AND ACKNOWLEDGED UNDERSTANDING OF THEM. [facility] AND [facility]LE DC[facility]D. [facility] PROVIDED THE PT WITH A PORTABLE O2 CONCENTRATOR. PT CARE TEAM BROUGHT HER ELECTRIC SCOOTER IN AND THE PT DROVE HERSELF OUT TO THE PARKING LOT TO BE PICKED UP BY THEIR TRANSPORT VAN. NO S&S OF DISTRESS NOTED AT THE TIME OF DISCHARGE.
== END 2024-10-20 16:44 | disposition home or self-care (01) | DRG 291 ==
LOC: ER 14:31 → MEDS 14:32 → ERHOLD 14:32 → MEDS 20:12
PROVIDERS: Emergency Medicine; ADMIT Student in an Organized Health Care Education/Training Program
DX: I13.0 Hypertensive heart and chronic kidney disease with heart failure and stage 1 through stage 4 chronic kidney disease, or unspecified chronic kidney disease (principal); I50.33 Acute on chronic diastolic (congestive) heart failure; J96.21 Acute and chronic respiratory failure with hypoxia; N18.4 Chronic kidney disease, stage 4 (severe); I27.22 Pulmonary hypertension due to left heart disease; I27.23 Pulmonary hypertension due to lung diseases and hypoxia; E11.51 Type 2 diabetes mellitus with diabetic peripheral angiopathy without gangrene; E11.22 Type 2 diabetes mellitus with diabetic chronic kidney disease; Z66 Do not resuscitate; K44.9 Diaphragmatic hernia without obstruction or gangrene; K21.9 Gastro-esophageal reflux disease without esophagitis; I25.10 Atherosclerotic heart disease of native coronary artery without angina pectoris; M10.9 Gout, unspecified; M81.0 Age-related osteoporosis without current pathological fracture; I44.0 Atrioventricular block, first degree; I44.7 Left bundle-branch block, unspecified; I48.0 Paroxysmal atrial fibrillation; G47.33 Obstructive sleep apnea (adult) (pediatric); J44.9 Chronic obstructive pulmonary disease, unspecified; Z85.038 Personal history of other malignant neoplasm of large intestine; Z79.899 Other long term (current) drug therapy; Z79.01 Long term (current) use of anticoagulants; Z79.4 Long term (current) use of insulin; Z95.5 Presence of coronary angioplasty implant and graft; Z90.49 Acquired absence of other specified parts of digestive tract; Z90.710 Acquired absence of both cervix and uterus; Z90.722 Acquired absence of ovaries, bilateral; Z90.79 Acquired absence of other genital organ(s); Z90.89 Acquired absence of other organs; I25.2 Old myocardial infarction; Z86.718 Personal history of other venous thrombosis and embolism
CPT/HCPCS: 0241U; 36415; 71046; 80048; 80053; 82803; 82947; 83735; 85025; 85651; 86140; 93005; 93010; 94761; 94762; 99285-25; A9270; G0378; J0360; J1815

== ENCOUNTER 2024-12-05 18:39 | Emergency (ER) | payer MEDICARE, OTHER ==
[~2024-12-05] VITALS: Ht 139.7 cm; Wt 72.6 kg
[~2024-12-05 18:39] MED LIST changes: +ALDACTONE25 MG PO; +ELIQUIS2.5 M1 PO; +Flonase 0.05% Nasal; +HUMALOG KW100 UNIT/1 SQ; +Humalog KwikPen 100 SC; +ISOSORBIDE MONO60 MG PO; +Insulin Glargine-Yfg SC; +JARDIANCE10 MG PO; +TIOT18 INH; +Vitamin D PO
[2024-12-05] MEDS ORDERED: Metoclopramide HCl 5MG / ML 2ML Vial IV ONE (19:05)
[2024-12-05 19:17] LABS: BASOPHILS ABSOLUTE AUTO 0.07 K/mm3 (0.00-0.23); BASOPHILS PERCENT AUTO 1 % (0-2); EOSINOPHILS ABSOLUTE AUTO 0.17 K/mm3 (0.00-0.68); EOSINOPHILS PERCENT AUTO 2 % (0-6); Hematocrit 32.9 % (33.0-51.0); Hemoglobin 11.7 g/dL (11.5-16.0); IMMATURE GRAN ABSOLUTE AUTO 0.07 K/mm3 (0.00-0.10); IMMATURE GRAN PERCENT AUTO 1 % (0-1); LYMPHOCYTES ABSOLUTE AUTO 1.59 K/mm3 (0.84-5.20); LYMPHOCYTES PERCENT AUTO 14 % (21-46); MONOCYTES ABSOLUTE AUTO 0.89 K/mm3 (0.16-1.47); MONOCYTES PERCENT AUTO 8 % (4-13); Mean Corpuscular HGB 34.3 pg (26.0-34.0); Mean Corpuscular HGB Conc 35.6 g/dL (31.5-36.5); Mean Corpuscular Volume 97 fL (80-100); Mean Platelet Volume 11.7 fL (9.1-12.4); NEUTROPHILS ABSOLUTE AUTO 8.52 K/mm3 (1.96-9.15); NEUTROPHILS PERCENT AUTO 75 % (41-73); Platelet Count 187 K/mm3 (150-400); RDW Coefficient Variation 15.9 % (11.7-14.2); RDW Standard Deviation 55.6 fL (35.1-46.3); Red Blood Cell Count 3.41 M/mm3 (3.80-5.20); White Blood Cell Count 11.31 K/mm3 (4.00-11.30)
[2024-12-05 19:40] LABS: Albumin, Blood 3.6 g/dL (3.4-5.0); Albumin/Globulin Ratio 1.2 (0.8-1.8); Bun/Creatinine Ratio 37.1 (12.0-20.0); Calcium, Blood 9.6 mg/dL (8.5-10.1); Creatinine, Blood 2.4 mg/dL (0.40-1.00); Globulin, Blood 3.1 g/dL (2.2-4.0); Total Protein, Blood 6.7 g/dL (6.4-8.2)
[2024-12-05 19:52] LABS: Influenza A, PCR NEGATIVE (NEGATIVE); Influenza B, PCR NEGATIVE (NEGATIVE); Resp Syncytial Virus, PCR NEGATIVE (NEGATIVE); SARS-Cov-2 (COVID-19) PCR, MMC NEGATIVE (NEGATIVE)
[2024-12-05] MEDS ORDERED: METO10 PO (20:45)
[2024-12-05 21:15] VITALS: BP 166/40
== END 2024-12-05 21:37 | disposition home or self-care (01) ==
LOC: ER 18:39
PROVIDERS: Emergency Medicine
DX: H81.399 Other peripheral vertigo, unspecified ear (principal); I13.0 Hypertensive heart and chronic kidney disease with heart failure and stage 1 through stage 4 chronic kidney disease, or unspecified chronic kidney disease; I50.30 Unspecified diastolic (congestive) heart failure; E11.22 Type 2 diabetes mellitus with diabetic chronic kidney disease; N18.4 Chronic kidney disease, stage 4 (severe); E11.319 Type 2 diabetes mellitus with unspecified diabetic retinopathy without macular edema; I25.10 Atherosclerotic heart disease of native coronary artery without angina pectoris; I25.2 Old myocardial infarction; J44.89 Other specified chronic obstructive pulmonary disease; G47.33 Obstructive sleep apnea (adult) (pediatric); Z86.718 Personal history of other venous thrombosis and embolism; Z95.5 Presence of coronary angioplasty implant and graft; Z79.4 Long term (current) use of insulin; Z79.01 Long term (current) use of anticoagulants; Z79.899 Other long term (current) drug therapy
CPT/HCPCS: 0241U; 71045; 80053; 83690; 85025; 93005; 93010; 96374; 99284-25; J2765